=== PATIENT | female | born 1950 | race Caucasian/White ===

== ENCOUNTER 2023-01-14 14:03 | Inpatient (IN) | payer MEDICARE ==
--- NOTE | 2023-01-14 14:30 | ED ---
General Adult HPI - General Chief complaint: Shortness of Breath Stated complaint: SOB Time Seen by Provider: 01/14/23 14:08 Source: patient, RN notes reviewed Mode of arrival: EMS Limitations: no limitations - History of Present Illness Initial comments: Patient is a pleasant 72-year-old female presenting to the emergency Department short of breath. Admits to having a cough over the past week or 2. Patient states dyspnea just started today. Patient does have history of similar symptoms previously associated with COPD. Patient does admit to having some mild leg swelling. Patient is on Coumadin. No chest pain. Symptoms have significantly improved following nebulizer by EMS. - Related Data Home Medications Medication Instructions Recorded Confirmed ALPRAZolam [Xanax] 0.25 mg PO DAILY PRN 11/05/22 01/14/23 Acetaminophen [Tylenol] 650 mg PO Q6H PRN 11/05/22 01/14/23 Apple Cider Vinegar 500mg 500 mg PO DAILY 11/05/22 01/14/23 Aspirin EC [Ecotrin Low Dose] 81 mg PO DAILY 11/05/22 01/14/23 Atorvastatin Calcium [Lipitor] 80 mg PO HS 11/05/22 01/14/23 Bumetanide [BUMEX] 1 mg PO DAILY 11/05/22 01/14/23 Calcium Carbonate [Calcium] 1,200 mg PO DAILY 11/05/22 01/14/23 Cholecalciferol [Vitamin D3 (25 50 mcg PO DAILY 11/05/22 01/14/23 Mcg = 1000 Iu)] Levothyroxine Sodium [Synthroid] 175 mcg PO DAILY 11/05/22 01/14/23 Phenazopyridine HCl [Pyridium] 200 mg PO TID PRN 11/05/22 01/14/23 Potassium Chloride ER [K-Dur 10] 10 meq PO DAILY 11/05/22 01/14/23 Sertraline [Zoloft] 50 mg PO HS 11/05/22 01/14/23 Warfarin [Coumadin] 2.5 mg PO MOTUWEFRSA 11/05/22 01/14/23 Warfarin [Coumadin] 5 mg PO SUTH 11/05/22 01/14/23 buPROPion XL [Wellbutrin XL] 150 mg PO DAILY 11/05/22 01/14/23 polyethylene glycoL 3350 [Miralax] 17 gm PO DAILY 11/05/22 01/14/23 Ferrous Sulfate [Iron (65 MG 325 mg PO DAILY 01/14/23 01/14/23 Elemental)] Gabapentin [Neurontin] 300 mg PO BID 01/14/23 01/14/23 Metoprolol Succinate [Metoprolol 25 mg PO DAILY 01/14/23 01/14/23 Succinate ER] Previous Rx's Medication Instructions Recorded Cyanocobalamin [Vitamin B-12] 1,000 mcg PO DAILY #30 tab 11/12/22 Omeprazole 40 mg PO BID #60 cap 11/12/22 Promethazine [Phenergan] 12.5 mg PO Q6HR PRN #10 tab 11/29/22 metFORMIN HCL [Glucophage] 850 mg PO BID-W/MEALS 30 Days #60 11/29/22 tab Allergies Allergy/AdvReac Type Severity Reaction Status Date / Time No Known Allergies Allergy Verified 01/14/23 15:17 Review of Systems ROS Statement: Those systems with pertinent positive or pertinent negative responses have been documented in the HPI. ROS Other: All systems not noted in ROS Statement are negative. Constitutional: Denies: fever Eyes: Denies: eye pain ENT: Denies: ear pain Respiratory: Reports: as per HPI, cough, dyspnea Cardiovascular: Reports: edema. Denies: chest pain Endocrine: Reports: fatigue Gastrointestinal: Denies: abdominal pain Genitourinary: Denies: dysuria Musculoskeletal: Denies: back pain Skin: Denies: rash Neurological: Denies: weakness Past Medical History Past Medical History: Diabetes Mellitus, Hyperlipidemia, Hypertension, Pulmonary Embolus (PE) Additional Past Medical History / Comment(s): Neuropathy, DM type 2 History of Any Multi-Drug Resistant Organisms: None Reported Past Surgical History: Appendectomy, Bladder Surgery, Coronary Bypass/CABG, Hysterectomy, Joint Replacement Additional Past Surgical History / Comment(s): Lung surgery, bladder suspension x5, right knee replacement Past Anesthesia/Blood Transfusion Reactions: No Reported Reaction Past Psychological History: Anxiety Smoking Status: Never smoker Past Alcohol Use History: None Reported Past Drug Use History: None Reported - Past Family History Father Family Medical History: Hyperlipidemia, Hypertension, Myocardial Infarction ([place]) Additional Family Medical History / Comment(s): Passed from myocardial infarction in 1999. Mother Family Medical History: Coronary Artery Disease (CAD), Renal Disease Additional Family Medical History / Comment(s): "Surgery on carotids," was on peritoneal dialysis. General Exam Limitations: no limitations General appearance: alert, in no apparent distress Head exam: Present: normocephalic Eye exam: Present: normal appearance Neck exam: Present: normal inspection Respiratory exam: Present: wheezes (Mild expiratory) Cardiovascular Exam: Present: regular rate, normal rhythm GI/Abdominal exam: Present: soft. Absent: tenderness Extremities exam: Present: pedal edema (+1 bilateral). Absent: calf tenderness Neurological exam: Present: alert Psychiatric exam: Present: normal affect, normal mood Skin exam: Present: normal color Course Vital Signs 01/14/23 01/14/23 01/14/23 14:06 14:08 14:42 Temperature 98 F Pulse Rate 92 88 Respiratory 24 18 20 Rate Blood Pressure 130/52 105/44 O2 Sat by Pulse 97 96 Oximetry 01/14/23 16:03 Temperature Pulse Rate 68 Respiratory 16 Rate Blood Pressure 110/60 O2 Sat by Pulse 98 Oximetry EKG Findings - EKG Results: EKG: interpreted by ERMD (Right axis. Right branch block. ST depression V2 through V5.), sinus rhythm Medical Decision Making - Medical Decision Making Was pt. sent in by a medical professional or institution (, PA, HARDWARE DESIGNER, urgent care, hospital, or skilled nursing...) When possible be specific @ -No Did you speak to anyone other than the patient for history (EMS, parent, family, police, friend...)? What history was obtained from this source @ -No Did you review nursing and triage notes (agree or disagree)? Why? @ -I reviewed and agree with nursing and triage notes Were old charts reviewed (outside hosp., previous admission, EMS record, old EKG, old radiological studies, urgent care reports/EKG's, skilled nursing records)? Report findings @ -Previous admission reviewed Differential Diagnosis (chest pain, altered mental status, abdominal pain women, abdominal pain men, vaginal bleeding, weakness, fever, dyspnea, syncope, headache, dizziness, GI bleed, back pain, seizure, CVA, palpatations, mental health)? @ -Differential Dyspnea: Coronary syndrome, arrhythmia, tamponade, asthma, COPD, pulmonary embolism, pneumonia, pneumothorax, pulmonary effusion, anaphylaxis, diabetic ketoacidosis, flailed chest, pulmonary contusion, diaphragmatic rupture, anemia, neuromuscular, this is not meant to be an all-inclusive list. EKG interpreted by me (3pts min.). @ -As above X-rays interpreted by me (1pt min.). @ -Chest x-ray without acute abnormality CT interpreted by me (1pt min.). @ -None done U/S interpreted by me (1pt. min.). @ -None done What testing was considered but not performed or refused? (CT, X-rays, U/S, labs)? Why? @ -None What meds were considered but not given or refused? Why? @ -None Did you discuss the management of the patient with other professionals (professionals i.e. Dr., PA, HARDWARE DESIGNER, lab, RT, psych nurse, social and human services assistant, associate, teacher, business banking officer, child support case officer)? Give summary @ -Case discussed with practitioner Kelsey Jones will admit covering for Dr. Johnson, who admits for Dr. Boyle. Patient will be evaluated by cardiology to review EKG and will have repeat cardiac testing. Was smoking cessation discussed for >3mins.? @ -No Was critical care preformed (if so, how long)? @ -No Were there social determinants of health that impacted care today? How? (Homelessness, low income, unemployed, alcoholism, drug addiction, transportation, low edu. Level, literacy, decrease access to med. care, [facility], rehab)? @ -No Was there de-escalation of care discussed even if they declined (Discuss DNR or withdrawal of care, Hospice)? DNR status @ -No What co-morbidities impacted this encounter? (DM, HTN, Smoking, COPD, CAD, Cancer, CVA, ARF, Chemo, Hep., AIDS, mental health diagnosis, sleep apnea, morbid obesity)? @ -None Was patient admitted / discharged? Hospital course, mention meds given and route, prescriptions, significant lab abnormalities, going to OR and other pertinent info. @ -Patient reevaluated and feels much better following nebulizer. Patient will be held for cardiac evaluation Undiagnosed new problem with uncertain prognosis? @ -No Drug Therapy requiring intensive monitoring for toxicity (Heparin, Nitro, Insulin, Cardizem)? @ -No Were any procedures done? @ -No Diagnosis/symptom? @ -COPD Acute, or Chronic, or Acute on Chronic? @ -Acute on chronic Uncomplicated (without systemic symptoms) or Complicated (systemic symptoms)? @ -default Side effects of treatment? @ -No Exacerbation, Progression, or Severe Exacerbation? @ -No Poses a threat to life or bodily function? How? (Chest pain, USA, CT, pneumonia, PE, COPD, DKA, ARF, appy, cholecystitis, CVA, Diverticulitis, Homicidal, Suicidal, threat to staff... and all critical care pts) @ -No - Lab Data Result diagrams: 01/14/23 14:27 01/14/23 14:27 Lab Results 01/14/23 01/14/23 01/14/23 Range/Units 14:27 14:27 14:27 WBC 6.3 (3.8-10.6) k/uL RBC 3.73 L (3.80-5.40) m/uL Hgb 9.3 L (11.4-16.0) gm/dL Hct 30.4 L (34.0-46.0) % MCV 81.4 D (80.0-100.0) fL MCH 25.0 (25.0-35.0) pg MCHC 30.7 L (31.0-37.0) g/dL RDW 16.5 H (11.5-15.5) % Plt Count 270 (150-450) k/uL MPV 8.2 Neutrophils % 79 % Lymphocytes % 12 % Monocytes % 4 % Eosinophils % 3 % Basophils % 0 % Neutrophils # 5.0 (1.3-7.7) k/uL Lymphocytes # 0.7 L (1.0-4.8) k/uL Monocytes # 0.3 (0-1.0) k/uL Eosinophils # 0.2 (0-0.7) k/uL Basophils # 0.0 (0-0.2) k/uL Hypochromasia Marked Poikilocytosis Slight Anisocytosis Slight PT 18.8 H (9.0-12.0) sec INR 1.9 H (<1.2) APTT 25.4 (22.0-30.0) sec Sodium 139 (137-145) mmol/L Potassium 4.2 (3.5-5.1) mmol/L Chloride 106 (98-107) mmol/L Carbon Dioxide 26 (22-30) mmol/L Anion Gap 7 mmol/L BUN 15 (7-17) mg/dL Creatinine 0.61 (0.52-1.04) mg/dL Est GFR (CKD-EPI)AfAm >90 (>60 ml/min/1.73 sqM) Est GFR (CKD-EPI)NonAf >90 (>60 ml/min/1.73 sqM) Glucose 119 H (74-99) mg/dL Plasma Lactic Acid Wayne (0.7-2.0) mmol/L Calcium 8.8 (8.4-10.2) mg/dL Magnesium 1.4 L (1.6-2.3) mg/dL Total Bilirubin 0.3 (0.2-1.3) mg/dL AST 20 (14-36) U/L ALT 15 (4-34) U/L Alkaline Phosphatase 72 (38-126) U/L Troponin I (0.000-0.034) ng/mL NT-Pro-B Natriuret Pep pg/mL Total Protein 5.4 L (6.3-8.2) g/dL Albumin 3.2 L (3.5-5.0) g/dL Influenza Type A (PCR) (Not Detectd) Influenza Type B (PCR) (Not Detectd) RSV (PCR) (Not Detectd) SARS-CoV-2 (PCR) (Not Detectd) 01/14/23 01/14/23 01/14/23 Range/Units 14:27 14:27 14:27 WBC (3.8-10.6) k/uL RBC (3.80-5.40) m/uL Hgb (11.4-16.0) gm/dL Hct (34.0-46.0) % MCV (80.0-100.0) fL MCH (25.0-35.0) pg MCHC (31.0-37.0) g/dL RDW (11.5-15.5) % Plt Count (150-450) k/uL MPV Neutrophils % % Lymphocytes % % Monocytes % % Eosinophils % % Basophils % % Neutrophils # (1.3-7.7) k/uL Lymphocytes # (1.0-4.8) k/uL Monocytes # (0-1.0) k/uL Eosinophils # (0-0.7) k/uL Basophils # (0-0.2) k/uL Hypochromasia Poikilocytosis Anisocytosis PT (9.0-12.0) sec INR (<1.2) APTT (22.0-30.0) sec Sodium (137-145) mmol/L Potassium (3.5-5.1) mmol/L Chloride (98-107) mmol/L Carbon Dioxide (22-30) mmol/L Anion Gap mmol/L BUN (7-17) mg/dL Creatinine (0.52-1.04) mg/dL Est GFR (CKD-EPI)AfAm (>60 ml/min/1.73 sqM) Est GFR (CKD-EPI)NonAf (>60 ml/min/1.73 sqM) Glucose (74-99) mg/dL Plasma Lactic Acid Wayne 2.5 H* (0.7-2.0) mmol/L Calcium (8.4-10.2) mg/dL Magnesium (1.6-2.3) mg/dL Total Bilirubin (0.2-1.3) mg/dL AST (14-36) U/L ALT (4-34) U/L Alkaline Phosphatase (38-126) U/L Troponin I <0.012 (0.000-0.034) ng/mL NT-Pro-B Natriuret Pep 2900 pg/mL Total Protein (6.3-8.2) g/dL Albumin (3.5-5.0) g/dL Influenza Type A (PCR) (Not Detectd) Influenza Type B (PCR) (Not Detectd) RSV (PCR) (Not Detectd) SARS-CoV-2 (PCR) (Not Detectd) 01/14/23 Range/Units 14:27 WBC (3.8-10.6) k/uL RBC (3.80-5.40) m/uL Hgb (11.4-16.0) gm/dL Hct (34.0-46.0) % MCV (80.0-100.0) fL MCH (25.0-35.0) pg MCHC (31.0-37.0) g/dL RDW (11.5-15.5) % Plt Count (150-450) k/uL MPV Neutrophils % % Lymphocytes % % Monocytes % % Eosinophils % % Basophils % % Neutrophils # (1.3-7.7) k/uL Lymphocytes # (1.0-4.8) k/uL Monocytes # (0-1.0) k/uL Eosinophils # (0-0.7) k/uL Basophils # (0-0.2) k/uL Hypochromasia Poikilocytosis Anisocytosis PT (9.0-12.0) sec INR (<1.2) APTT (22.0-30.0) sec Sodium (137-145) mmol/L Potassium (3.5-5.1) mmol/L Chloride (98-107) mmol/L Carbon Dioxide (22-30) mmol/L Anion Gap mmol/L BUN (7-17) mg/dL Creatinine (0.52-1.04) mg/dL Est GFR (CKD-EPI)AfAm (>60 ml/min/1.73 sqM) Est GFR (CKD-EPI)NonAf (>60 ml/min/1.73 sqM) Glucose (74-99) mg/dL Plasma Lactic Acid Wayne (0.7-2.0) mmol/L Calcium (8.4-10.2) mg/dL Magnesium (1.6-2.3) mg/dL Total Bilirubin (0.2-1.3) mg/dL AST (14-36) U/L ALT (4-34) U/L Alkaline Phosphatase (38-126) U/L Troponin I (0.000-0.034) ng/mL NT-Pro-B Natriuret Pep pg/mL Total Protein (6.3-8.2) g/dL Albumin (3.5-5.0) g/dL Influenza Type A (PCR) Not Detected (Not Detectd) Influenza Type B (PCR) Not Detected (Not Detectd) RSV (PCR) Not Detected (Not Detectd) SARS-CoV-2 (PCR) Not Detected (Not Detectd) Disposition Clinical Impression: Acute exacerbation of chronic obstructive pulmonary disease Disposition: ADMITTED IP TO THIS HOSP Is patient prescribed a controlled substance at d/c from ED?: No Referrals: Marissa Boyle DO [Primary Care Provider] - 1-2 days Time of Disposition: 17:51
--- NOTE | 2023-01-14 15:15 | XR ---
EXAMINATION TYPE: XR chest 2V DATE OF EXAM: 01/14/2023 3:04 PM COMPARISON: Chest radiographs from 11/27/2022 TECHNIQUE: XR chest 2V Frontal and lateral views of the chest. CLINICAL INDICATION:Female, 72 years old with history of difficulty breathing; FINDINGS: Lungs/Pleura: There is no evidence of pleural effusion, focal consolidation, or pneumothorax. Pulmonary vascularity: Unremarkable. Heart/mediastinum: Cardiomediastinal silhouette is unremarkable. Musculoskeletal: No acute osseous pathology. IMPRESSION: No acute cardiopulmonary disease/process.
[2023-01-14 15:16] LABS: Anisocytosis Slight; Basophils % (A) 0 %; Eosinophils # (A) 0.2 k/uL (0-0.7); Eosinophils % (A) 3 %; HCT 30.4 % (34.0-46.0); HGB 9.3 gm/dL (11.4-16.0); Hypochromasia Marked; Lymphocytes # (A) 0.7 k/uL (1.0-4.8); Lymphocytes % (A) 12 %; MCHC 30.7 g/dL (31.0-37.0); Mean Platelet Volume 8.2; Monocytes # (A) 0.3 k/uL (0-1.0); Monocytes % (A) 4 %; Neutrophils % (A) 79 %; Platelet Count 270 k/uL (150-450); Poikilocytosis Slight; RBC 3.73 m/uL (3.80-5.40); RDW 16.5 % (11.5-15.5); WBC 6.3 k/uL (3.8-10.6)
[2023-01-14 15:27] LABS: MCV 81.4 fL (80.0-100.0)
[2023-01-14 15:37] LABS: INR 1.9 (<1.2); Partial Thromboplastin Time 25.4 sec (22.0-30.0); Prothrombin Time 18.8 sec (9.0-12.0)
[2023-01-14 16:50] LABS: ALT 15 U/L (4-34); AST 20 U/L (14-36); African American GFR (CKD) >90 (>60 ml/min/1.73 sqM); Albumin 3.2 g/dL (3.5-5.0); Alkaline Phosphatase 72 U/L (38-126); Anion Gap 7 mmol/L; Blood Urea Nitrogen 15 mg/dL (7-17); Calcium 8.8 mg/dL (8.4-10.2); Carbon Dioxide 26 mmol/L (22-30); Chloride 106 mmol/L (98-107); Glucose 119 mg/dL (74-99); Magnesium 1.4 mg/dL (1.6-2.3); Non-African American GFR(CKD) >90 (>60 ml/min/1.73 sqM); Potassium 4.2 mmol/L (3.5-5.1); Sodium 139 mmol/L (137-145); Total Bilirubin 0.3 mg/dL (0.2-1.3); Total Protein 5.4 g/dL (6.3-8.2)
[2023-01-14] MEDS ORDERED: ASPIRIN 81 MG PO STA (17:52)
[2023-01-14] MEDS ORDERED: NALOXONE 0.4 MG/ML 1 ML VIAL IVP PRN (17:52)
[2023-01-14] MEDS ORDERED: IPRATROPIUM-ALBUTEROL 3 ML NEB INHALATION PRN (17:52)
[2023-01-14] MEDS ORDERED: NITROGLYCERIN SL TABS 0.4 MG TAB SUBLINGUAL PRN (17:52)
[2023-01-14] MEDS: methylPREDNISolone SOD SUCCI 125 MG/2 ML VIAL IV SCH (18:13)
[2023-01-14] MEDS: IPRATROPIUM-ALBUTEROL 3 ML NEB INHALATION SCH (19:23)
[2023-01-14] MEDS ORDERED: DEXTROSE 50% SYRINGE 50 ML IVP PRN ×2 (19:30)
[2023-01-14] MEDS: PANTOPRAZOLE 40 MG TABLET PO SCH (20:55)
[2023-01-14] MEDS: ATORVASTATIN 80 MG TAB PO SCH (20:55)
[2023-01-14] MEDS: SERTRALINE 50 MG TAB PO SCH (20:55)
[2023-01-14] MEDS: INSULIN ASPART (NovoLOG) 100 UNIT/ML VIAL SQ SCH (20:55)
[2023-01-14] MEDS: GABAPENTIN 300 MG CAP PO SCH (20:55)
[2023-01-14 21:05] LABS: Glucose,Whole Blood 102 mg/dL (70-110)
[2023-01-15] MEDS: methylPREDNISolone SOD SUCCI 125 MG/2 ML VIAL IV SCH ×5 (00:04→23:09)
--- NOTE | 2023-01-15 02:18 | P.HPIM ---
History of Present Illness H&P Date: 01/14/23 Chief Complaint: Shortness of breath Patient is a 70-year-old female with a known history of coronary artery bypass graft, COPD on oxygen at 3 L via nasal cannula, history of multiple PEs status post thrombectomy at [facility] on long-term anticoagulation with Coumad in, diabetes type 2, hypertension, hyperlipidemia, diabetic neuropathy, Patient was recently discharged from the hospital 11/29/2022. Patient presents to ER with complaints of shortness of breath started today afternoon. Denies any complaints of chest pain. No headache or dizziness or lightheadedness. No nausea vomiting or abdominal pain or diarrhea. Patient does have mild leg swelling as well. Denies any worsening swelling recently.. Denied any pleuritic chest pain. Chest x-ray showed no acute cardiopulmonary process/disease EKG showed sinus rhythm with right bundle branch block with ST depression in the leads V2 to V4. Laboratory data showed WBC 6.3 hemoglobin 9.3 and platelets 270 INR 1.9 Lactic acid 2.5 on admission proBNP 2900 and albumin 3.2 and troponin x2 negative Influenza A B, COVID-19 and RSV not detected. Patient states that she is holding Coumadin for the past 3 days due to scheduled EGD. Review of Systems PHYSICAL EXAMINATION: Patient is lying in the bed comfortably, no acute distress, awake alert and oriented.. HEENT: Normocephalic. Neck is supple. Pupils reactive. Nostrils clear. Oral cavity is moist. Neck reveals no JVD, carotid bruits, or thyromegaly. CHEST EXAMINATION: Trachea is central. Symmetrical expansion. Bibasilar diminished sounds and diffuse wheezing. No rhonchi or crackles.. CARDIAC: Normal S1, S2 with no gallops. No murmurs ABDOMEN: Soft. Bowel sounds present. Nontender. No organomegaly. No abdominal bruits. Extremities: Trace bilateral pedal edema. No clubbing or cyanosis Neurologically awake, alert, oriented x3 with well-coordinated movements. No focal deficits noted Skin: No rash or skin lesions. Psychiatric: Coperative. Nonsuicidal, Musculoskeletal: No joint swelling or deformity. Normal range of motion. Past Medical History Past Medical History: Diabetes Mellitus, Hyperlipidemia, Hypertension, Pulmonary Embolus (PE) Additional Past Medical History / Comment(s): Neuropathy, DM type 2 History of Any Multi-Drug Resistant Organisms: None Reported Past Surgical History: Appendectomy, Bladder Surgery, Coronary Bypass/CABG, Hysterectomy, Joint Replacement Additional Past Surgical History / Comment(s): Lung surgery, bladder suspension x5, right knee replacement Past Anesthesia/Blood Transfusion Reactions: No Reported Reaction Past Psychological History: Anxiety Smoking Status: Never smoker Past Alcohol Use History: None Reported Past Drug Use History: None Reported - Past Family History Father Family Medical History: Hyperlipidemia, Hypertension, Myocardial Infarction ([place]) Additional Family Medical History / Comment(s): Passed from myocardial infarction in 1999. Mother Family Medical History: Coronary Artery Disease (CAD), Renal Disease Additional Family Medical History / Comment(s): "Surgery on carotids," was on peritoneal dialysis. Medications and Allergies Home Medications Medication Instructions Recorded Confirmed Type ALPRAZolam [Xanax] 0.25 mg PO DAILY PRN 11/05/22 01/14/23 History Acetaminophen [Tylenol] 650 mg PO Q6H PRN 11/05/22 01/14/23 History Apple Cider Vinegar 500mg 500 mg PO DAILY 11/05/22 01/14/23 History Aspirin EC [Ecotrin Low Dose] 81 mg PO DAILY 11/05/22 01/14/23 History Atorvastatin Calcium [Lipitor] 80 mg PO HS 11/05/22 01/14/23 History Bumetanide [BUMEX] 1 mg PO DAILY 11/05/22 01/14/23 History Calcium Carbonate [Calcium] 1,200 mg PO DAILY 11/05/22 01/14/23 History Cholecalciferol [Vitamin D3 (25 50 mcg PO DAILY 11/05/22 01/14/23 History Mcg = 1000 Iu)] Levothyroxine Sodium [Synthroid] 175 mcg PO DAILY 11/05/22 01/14/23 History Phenazopyridine HCl [Pyridium] 200 mg PO TID PRN 11/05/22 01/14/23 History Potassium Chloride ER [K-Dur 10] 10 meq PO DAILY 11/05/22 01/14/23 History Sertraline [Zoloft] 50 mg PO HS 11/05/22 01/14/23 History Warfarin [Coumadin] 2.5 mg PO MOTUWEFRSA 11/05/22 01/14/23 History Warfarin [Coumadin] 5 mg PO SUTH 11/05/22 01/14/23 History buPROPion XL [Wellbutrin XL] 150 mg PO DAILY 11/05/22 01/14/23 History polyethylene glycoL 3350 [Miralax] 17 gm PO DAILY 11/05/22 01/14/23 History Cyanocobalamin [Vitamin B-12] 1,000 mcg PO DAILY #30 tab 11/12/22 01/14/23 Rx Omeprazole 40 mg PO BID #60 cap 11/12/22 01/14/23 Rx Promethazine [Phenergan] 12.5 mg PO Q6HR PRN #10 tab 11/29/22 01/14/23 Rx metFORMIN HCL [Glucophage] 850 mg PO BID-W/MEALS 30 Days #60 11/29/22 01/14/23 Rx tab Ferrous Sulfate [Iron (65 MG 325 mg PO DAILY 01/14/23 01/14/23 History Elemental)] Gabapentin [Neurontin] 300 mg PO BID 01/14/23 01/14/23 History Metoprolol Succinate [Metoprolol 25 mg PO DAILY 01/14/23 01/14/23 History Succinate ER] Allergies Allergy/AdvReac Type Severity Reaction Status Date / Time No Known Allergies Allergy Verified 01/14/23 15:17 Physical Exam Vitals: Vital Signs Temp Pulse Resp BP Pulse Ox 01/14/23 18:15 87 16 112/57 99 01/14/23 16:03 68 16 110/60 98 01/14/23 14:42 20 01/14/23 14:08 88 18 105/44 96 01/14/23 14:06 98 F 92 24 130/52 97 Intake and Output 01/14/23 01/14/23 01/14/23 06:59 14:59 22:59 Other: Weight 79.379 kg PHYSICAL EXAMINATION: Patient is lying in the bed comfortably, no acute distress, awake alert and oriented.. HEENT: Normocephalic. Neck is supple. Pupils reactive. Nostrils clear. Oral cavity is moist. Neck reveals no JVD, carotid bruits, or thyromegaly. CHEST EXAMINATION: Trachea is central. Symmetrical expansion. Bibasilar diminished sounds and diffuse wheezing. No rhonchi or crackles.. CARDIAC: Normal S1, S2 with no gallops. No murmurs ABDOMEN: Soft. Bowel sounds present. Nontender. No organomegaly. No abdominal bruits. Extremities: Trace bilateral pedal edema. No clubbing or cyanosis Neurologically awake, alert, oriented x3 with well-coordinated movements. No focal deficits noted Skin: No rash or skin lesions. Psychiatric: Coperative. Nonsuicidal, Musculoskeletal: No joint swelling or deformity. Normal range of motion. Results CBC & Chem 7: 01/15/23 12:44 01/15/23 09:48 Labs: Abnormal Lab Results - Last 24 Hours (Table) 01/14/23 01/14/23 01/14/23 Range/Units 14:27 14:27 14:27 RBC 3.73 L (3.80-5.40) m/uL Hgb 9.3 L (11.4-16.0) gm/dL Hct 30.4 L (34.0-46.0) % MCHC 30.7 L (31.0-37.0) g/dL RDW 16.5 H (11.5-15.5) % Lymphocytes # 0.7 L (1.0-4.8) k/uL PT 18.8 H (9.0-12.0) sec INR 1.9 H (<1.2) Glucose 119 H (74-99) mg/dL Plasma Lactic Acid Wayne (0.7-2.0) mmol/L Magnesium 1.4 L (1.6-2.3) mg/dL Total Protein 5.4 L (6.3-8.2) g/dL Albumin 3.2 L (3.5-5.0) g/dL 01/14/23 Range/Units 14:27 RBC (3.80-5.40) m/uL Hgb (11.4-16.0) gm/dL Hct (34.0-46.0) % MCHC (31.0-37.0) g/dL RDW (11.5-15.5) % Lymphocytes # (1.0-4.8) k/uL PT (9.0-12.0) sec INR (<1.2) Glucose (74-99) mg/dL Plasma Lactic Acid Wayne 2.5 H* (0.7-2.0) mmol/L Magnesium (1.6-2.3) mg/dL Total Protein (6.3-8.2) g/dL Albumin (3.5-5.0) g/dL Thrombosis Risk Factor Assmnt - DVT/VTE Prophylaxis DVT/VTE Prophylaxis: Pharmacologic Prophylaxis ordered Assessment and Plan Assessment: Worsening shortness of breath secondary to acute COPD exacerbation Chronic hypoxic respiratory failure on oxygen at 3 L via nasal cannula History of PE status post thrombectomy at [facility]. on indefinite anticoagulation with Coumadin. Coronary artery disease history of CABG Diabetes type 2 [id number] Anxiety/depression Hypertension Hyperlipidemia Diabetic neuropathy Hypothyroidism Coumadin dosing and monitoring INR. Plan: Patient will be continued on IV Solu-Medrol 60 mg every 6 hourly and continue with DuoNebs. Oxygen supplementation. Coumadin dosing and home medications. Cardiology was consulted due to EKG changes. Continue to follow closely. Discussed with the patient and her at bedside in detail. Time with Patient: Greater than 30
[2023-01-15] MEDS: LEVOTHYROXINE 88 MCG TAB PO SCH (05:23)
[2023-01-15 06:15] LABS: Glucose,Whole Blood 223 mg/dL (70-110)
[2023-01-15] MEDS: INSULIN ASPART (NovoLOG) 100 UNIT/ML VIAL SQ SCH ×4 (06:18→21:11)
[2023-01-15] MEDS: IPRATROPIUM-ALBUTEROL 3 ML NEB INHALATION SCH ×4 (07:39→19:54)
[2023-01-15] MEDS: ACETAMINOPHEN TAB 325 MG TAB PO PRN (08:35)
[2023-01-15] MEDS: METOPROLOL SUCCINATE (ER) 25 MG TAB.ER.24H PO SCH (08:47)
[2023-01-15] MEDS: BUMETANIDE 1 MG TAB PO SCH (08:47)
[2023-01-15] MEDS: GABAPENTIN 300 MG CAP PO SCH ×2 (08:47→21:01)
[2023-01-15] MEDS: POTASSIUM CHLORIDE ER 10 MEQ TAB.ER.PRT PO SCH (08:47)
[2023-01-15] MEDS: buPROPion XL 150 MG TAB.ER.24H PO SCH (08:47)
[2023-01-15] MEDS: ASPIRIN 81 MG PO SCH (08:47)
[2023-01-15] MEDS: PANTOPRAZOLE 40 MG TABLET PO SCH ×2 (08:47→21:01)
[2023-01-15] MEDS ORDERED: ASPIRIN 325 MG TAB PO SCH (09:00)
[2023-01-15 10:10] LABS: Anisocytosis Slight; Basophils % (A) 0 %; Eosinophils % (A) 0 %; HCT 33.2 % (34.0-46.0); HGB 9.8 gm/dL (11.4-16.0); Hypochromasia Marked; Lymphocytes # (A) 0.3 k/uL (1.0-4.8); Lymphocytes % (A) 6 %; MCH 24.7 pg (25.0-35.0); MCHC 29.5 g/dL (31.0-37.0); MCV 83.4 fL (80.0-100.0); Mean Platelet Volume 8.3; Monocytes # (A) 0.1 k/uL (0-1.0); Monocytes % (A) 1 %; Neutrophils # (A) 4.2 k/uL (1.3-7.7); Neutrophils % (A) 92 %; Platelet Count 281 k/uL (150-450); Poikilocytosis Slight; RBC 3.97 m/uL (3.80-5.40); RDW 16.5 % (11.5-15.5); WBC 4.5 k/uL (3.8-10.6)
[2023-01-15 10:32] LABS: African American GFR (CKD) >90 (>60 ml/min/1.73 sqM); Anion Gap 9 mmol/L; Blood Urea Nitrogen 20 mg/dL (7-17); Calcium 8.7 mg/dL (8.4-10.2); Carbon Dioxide 23 mmol/L (22-30); Chloride 105 mmol/L (98-107); Glucose 206 mg/dL (74-99); Non-African American GFR(CKD) 89 (>60 ml/min/1.73 sqM); Potassium 4.2 mmol/L (3.5-5.1); Sodium 137 mmol/L (137-145)
--- NOTE | 2023-01-15 10:44 | P.CRDCN ---
History of Present Illness Consult date: 01/15/23 History of present illness: HISTORY OF PRESENT ILLNESS: This is a 72-year-old female with a past medical history significant for lupus, pulmonary embolism status post PTE in June 2021, coronary artery disease with previous one-vessel CABG in 2000 (performed in [place]), COPD, diabetes, hypothyroidism, and hyperlipidemia. Patient does not follow with a per diem physical therapist assistant. We have been asked to see the patient in consultation for abnormal EKG. Patient examined at the bedside. Patient presented to the hospital with a chief complaint of weakness and shortness of breath. Patient's being treated for COPD exacerbation. Patient denies any chest pain or pressure. She is receiving IV steroids. * EKG reveals sinus mechanism with right bundle branch block. Patient with T- wave inversions, also evident on previous EKGs * Chest xray negative for acute process * Laboratory data: WBC 4.5. Hemoglobin 9.8. Platelet count 281. Sodium 137. Potassium 4.2. BUN 20. Creatinine 0.66. Troponin negative 3. INR 1.9 * Current home cardiac medications include warfarin 5 mg Friday and 2.5 mg Friday, aspirin 81 mg daily, Bumex 1 mg daily, Lipitor 80 mg at night * Most recent echocardiogram obtained in November 2022 revealed ejection fraction 55-60%, mild to moderate right ventricular dilation with mild right ventricular hypokinesis. Mild tricuspid regurgitation. * Patient underwent Lexiscan stress test in November 2022 which was negative for ischemia REVIEW OF SYSTEMS: At the time of my exam: CONSTITUTIONAL: Denies fever or chills. HEENT: Denies blurred vision, vision changes, or eye pain. Denies hemoptysis CARDIOVASCULAR: Denies chest pain. Denies orthopnea. Denies PND. Denies palpitations RESPIRATORY: Denies shortness of breath. GASTROINTESTINAL: Denies abdominal pain. Denies nausea or vomiting. HEMATOLOGIC: Denies bleeding disorders. GENITOURINARY: Denies any blood in urine. SKIN: Denies pruitis. Denies rash. PHYSICAL EXAM: VITAL SIGNS: Reviewed. GENERAL: Well-developed in no acute distress. HEENT: Head is normocephalic. Pupils are equal, round. Sclerae anicteric. Mucous membranes of the mouth are moist. Neck supple. No JVD or thyromegaly LUNGS: Respirations even and unlabored. Lungs essentially clear to auscultation bilaterally. HEART: Regular rate and rhythm. S1 and S2 heard. ABDOMEN: Soft. Nondistended. Nontender. EXTREMITIES: Normal range of motion. No clubbing or cyanosis. Peripheral pulses intact. No lower extremity edema NEUROLOGIC: Awake and alert. Oriented x 3. ASSESSMENT: Shortness of breath COPD exacerbation History of pulmonary embolism, on warfarin Subtherapeutic INR Coronary artery disease with previous one-vessel CABG, performed in [place] in 2000 History of lupus Hyperlipidemia Hypothyroidism Diabetes PLAN: Obtain d-dimer secondary to subtherapeutic INR and history of PE Obtain limited echo Continue current cardiac medications Treatment of COPD exacerbation per internal medicine Further recommendations pending patient's course Nurse practitioner note has been reviewed by physician. Signing provider agrees with the documented findings, assessment, and plan of care. Past Medical History Past Medical History: Diabetes Mellitus, Hyperlipidemia, Hypertension, Pulmonary Embolus (PE) Additional Past Medical History / Comment(s): Neuropathy, DM type 2 History of Any Multi-Drug Resistant Organisms: None Reported Past Surgical History: Appendectomy, Bladder Surgery, Coronary Bypass/CABG, Hysterectomy, Joint Replacement Additional Past Surgical History / Comment(s): Lung surgery, bladder suspension x5, right knee replacement Past Anesthesia/Blood Transfusion Reactions: No Reported Reaction Past Psychological History: Anxiety Smoking Status: Never smoker Past Alcohol Use History: None Reported Past Drug Use History: None Reported - Past Family History Father Family Medical History: Hyperlipidemia, Hypertension, Myocardial Infarction ([place]) Additional Family Medical History / Comment(s): Passed from myocardial infarction in 1999. Mother Family Medical History: Coronary Artery Disease (CAD), Renal Disease Additional Family Medical History / Comment(s): "Surgery on carotids," was on peritoneal dialysis. Medications and Allergies Home Medications Medication Instructions Recorded Confirmed Type ALPRAZolam [Xanax] 0.25 mg PO DAILY PRN 11/05/22 01/14/23 History Acetaminophen [Tylenol] 650 mg PO Q6H PRN 11/05/22 01/14/23 History Apple Cider Vinegar 500mg 500 mg PO DAILY 11/05/22 01/14/23 History Aspirin EC [Ecotrin Low Dose] 81 mg PO DAILY 11/05/22 01/14/23 History Atorvastatin Calcium [Lipitor] 80 mg PO HS 11/05/22 01/14/23 History Bumetanide [BUMEX] 1 mg PO DAILY 11/05/22 01/14/23 History Calcium Carbonate [Calcium] 1,200 mg PO DAILY 11/05/22 01/14/23 History Cholecalciferol [Vitamin D3 (25 50 mcg PO DAILY 11/05/22 01/14/23 History Mcg = 1000 Iu)] Levothyroxine Sodium [Synthroid] 175 mcg PO DAILY 11/05/22 01/14/23 History Phenazopyridine HCl [Pyridium] 200 mg PO TID PRN 11/05/22 01/14/23 History Potassium Chloride ER [K-Dur 10] 10 meq PO DAILY 11/05/22 01/14/23 History Sertraline [Zoloft] 50 mg PO HS 11/05/22 01/14/23 History Warfarin [Coumadin] 2.5 mg PO MOTUWEFRSA 11/05/22 01/14/23 History Warfarin [Coumadin] 5 mg PO SUTH 11/05/22 01/14/23 History buPROPion XL [Wellbutrin XL] 150 mg PO DAILY 11/05/22 01/14/23 History polyethylene glycoL 3350 [Miralax] 17 gm PO DAILY 11/05/22 01/14/23 History Cyanocobalamin [Vitamin B-12] 1,000 mcg PO DAILY #30 tab 11/12/22 01/14/23 Rx Omeprazole 40 mg PO BID #60 cap 11/12/22 01/14/23 Rx Promethazine [Phenergan] 12.5 mg PO Q6HR PRN #10 tab 11/29/22 01/14/23 Rx metFORMIN HCL [Glucophage] 850 mg PO BID-W/MEALS 30 Days #60 11/29/22 01/14/23 Rx tab Ferrous Sulfate [Iron (65 MG 325 mg PO DAILY 01/14/23 01/14/23 History Elemental)] Gabapentin [Neurontin] 300 mg PO BID 01/14/23 01/14/23 History Metoprolol Succinate [Metoprolol 25 mg PO DAILY 01/14/23 01/14/23 History Succinate ER] Allergies Allergy/AdvReac Type Severity Reaction Status Date / Time No Known Allergies Allergy Verified 01/14/23 15:17 Physical Exam Vitals: Vital Signs Temp Pulse Pulse Resp BP BP Pulse Ox 01/15/23 07:54 78 01/15/23 07:39 76 97 01/15/23 06:26 98.3 F 87 17 119/78 97 01/15/23 02:00 98.1 F 98 14 109/58 96 01/14/23 21:22 68 16 130/60 98 01/14/23 20:57 92 20 106/55 96 01/14/23 20:25 80 01/14/23 19:47 86 16 110/60 98 01/14/23 19:23 82 01/14/23 18:15 87 16 112/57 99 01/14/23 16:03 68 16 110/60 98 01/14/23 14:42 20 01/14/23 14:08 88 18 105/44 96 01/14/23 14:06 98 F 92 24 130/52 97 Intake and Output 01/14/23 01/15/23 01/15/23 22:59 06:59 14:59 Other: Voiding Method Toilet # Voids 1 Weight 79.379 kg Results 01/15/23 09:48 01/15/23 09:48 Cardiac Enzymes 01/14/23 01/14/23 01/14/23 Range/Units 14:27 14:27 18:46 AST 20 (14-36) U/L Troponin I <0.012 <0.012 (0.000-0.034) ng/mL 01/14/23 Range/Units 20:57 AST (14-36) U/L Troponin I <0.012 (0.000-0.034) ng/mL Coagulation 01/14/23 Range/Units 14:27 PT 18.8 H (9.0-12.0) sec APTT 25.4 (22.0-30.0) sec CBC 01/14/23 01/15/23 Range/Units 14:27 09:48 WBC 6.3 4.5 (3.8-10.6) k/uL RBC 3.73 L 3.97 (3.80-5.40) m/uL Hgb 9.3 L 9.8 L (11.4-16.0) gm/dL Hct 30.4 L 33.2 L (34.0-46.0) % Plt Count 270 281 (150-450) k/uL Comprehensive Metabolic Panel 01/14/23 01/15/23 Range/Units 14:27 09:48 Sodium 139 137 (137-145) mmol/L Potassium 4.2 4.2 (3.5-5.1) mmol/L Chloride 106 105 (98-107) mmol/L Carbon Dioxide 26 23 (22-30) mmol/L BUN 15 20 H (7-17) mg/dL Creatinine 0.61 0.66 (0.52-1.04) mg/dL Glucose 119 H 206 H (74-99) mg/dL Calcium 8.8 8.7 (8.4-10.2) mg/dL AST 20 (14-36) U/L ALT 15 (4-34) U/L Alkaline Phosphatase 72 (38-126) U/L Total Protein 5.4 L (6.3-8.2) g/dL Albumin 3.2 L (3.5-5.0) g/dL Current Medications Generic Name Dose Route Start Last Admin Trade Name Freq PRN Reason Stop Dose Admin Acetaminophen 650 mg 01/14/23 17:52 01/15/23 08:35 Acetaminophen Tab 325 Mg Tab PO 650 mg Q4HR PRN Administration Mild Pain or Fever > 100.5 Albuterol/Ipratropium 3 ml 01/14/23 20:00 01/15/23 07:39 Ipratropium-Albuterol 3 Ml Neb INHALATION 3 ml RT-QID THOMAS Administration Albuterol/Ipratropium 3 ml 01/14/23 17:52 Ipratropium-Albuterol 3 Ml Neb INHALATION RT-Q2H PRN Shortness Of Breath Or Wheezing Aspirin 81 mg 01/15/23 09:00 01/15/23 08:47 Aspirin 81 Mg PO 81 mg DAILY THOMAS Administration Atorvastatin Calcium 80 mg 01/14/23 21:00 01/14/23 20:55 Atorvastatin 80 Mg Tab PO 80 mg HS THOMAS Administration Bumetanide 1 mg 01/15/23 09:00 01/15/23 08:47 Bumetanide 1 Mg Tab PO 1 mg DAILY THOMAS Administration Bupropion HCl 150 mg 01/15/23 09:00 01/15/23 08:47 Bupropion Xl 150 Mg Tab.Er.24h PO 150 mg DAILY THOMAS Administration Dextrose/Water 25 ml 01/14/23 19:30 Dextrose 50% Syringe 50 Ml IVP PER PROTOCOL PRN Hypoglycemia Protocol Dextrose/Water 50 ml 01/14/23 19:30 Dextrose 50% Syringe 50 Ml IVP PER PROTOCOL PRN Hypoglycemia Protocol Gabapentin 300 mg 01/14/23 21:00 01/15/23 08:47 Gabapentin 300 Mg Cap PO 300 mg BID THOMAS Administration Insulin Aspart 0 unit 01/14/23 21:00 01/15/23 06:18 Insulin Aspart (Novolog) 100 Unit/Ml Vial SQ 2 unit ACHS THOMAS Administration Protocol Levothyroxine Sodium 176 mcg 01/15/23 06:30 01/15/23 05:23 Levothyroxine 88 Mcg Tab PO 176 mcg 0630 THOMAS Administration Methylprednisolone Sodium Succinate 60 mg 01/14/23 18:00 01/15/23 05:22 Methylprednisolone Sod Succi 125 Mg/2 Ml Vial IV 60 mg Q6HR THOMAS Administration Metoprolol Succinate 25 mg 01/15/23 09:00 01/15/23 08:47 Metoprolol Succinate (Er) 25 Mg Tab.Er.24h PO 25 mg DAILY THOMAS Administration Naloxone HCl 0.2 mg 01/14/23 17:52 Naloxone 0.4 Mg/Ml 1 Ml Vial IVP Q2M PRN Opioid Reversal Nitroglycerin 0.4 mg 01/14/23 17:52 Nitroglycerin Sl Tabs 0.4 Mg Tab SUBLINGUAL Q5M PRN Chest Pain Pantoprazole Sodium 40 mg 01/14/23 21:00 01/15/23 08:47 Pantoprazole 40 Mg Tablet PO 40 mg BID THOMAS Administration Potassium Chloride 10 meq 01/15/23 09:00 01/15/23 08:47 Potassium Chloride Er 10 Meq Tab.Er.Prt PO 10 meq DAILY THOMAS Administration Sertraline HCl 50 mg 01/14/23 21:00 01/14/23 20:55 Sertraline 50 Mg Tab PO 50 mg HS THOMAS Administration Intake and Output 01/14/23 01/15/23 01/15/23 22:59 06:59 14:59 Other: Voiding Method Toilet # Voids 1 Weight 79.379 kg 01/15/23 09:48 01/15/23 09:48
--- NOTE | 2023-01-15 11:57 | CA ---
Transthoracic Echo Report Name: Regina Padgett Age: 72 Gender: F : 1950 Exam Date: 01/15/2023 10:53 Exam Location: [place] [facility] Ht (in): 62 Wt (lb): 175 Ordering Physician: Kenya Bravo Attending/Referring Phys: [id number], [employer] Leigh Ann Bey, ALLISON Procedure CPT: Indications: LV function Cardiac Hx: limited study Technical Quality: Fair Contrast 1: Total Dose (mL): Contrast 2: Total Dose (mL): MEASUREMENTS (Male / Female) Normal Values 2D ECHO RV Internal Dim ED PLAX 3.8 cm LA Volume 37.0 cm??? 18 - 58 / 22 - 52 cm??? DOPPLER AV Peak Velocity 113.7 cm/s AV Peak Gradient 5.2 mmHg MV Area PHT 3.4 cm??? Mitral E Point Velocity 80.4 cm/s Mitral A Point Velocity 100.4 cm/s Mitral E to A Ratio 0.8 MV Deceleration Time 220.7 ms MV E' Velocity 7.3 cm/s Mitral E to MV E' Ratio 11.0 TR Peak Velocity 370.9 cm/s TR Peak Gradient 55.0 mmHg Right Ventricular Systolic Press 58.0 mmHg FINDINGS Left Ventricle Left ventricular ejection fraction is estimated at 55-60 %. No obvious regional wall motion abnormalities. Flattening ventricular septum in systole and diastole Right Ventricle Moderate right ventricular dilatation. Severe pulmonary hypertension. Right ventricular systolic pressure estimated at 58 mm hg. Severely reduced right ventricular global systolic function. Right Atrium Normal right atrial size. Left Atrium Mitral Valve Aortic Valve Tricuspid Valve [id number] tricuspid regurgitation. Pulmonic Valve Pericardium Normal pericardium. No pericardial effusion. Aorta CONCLUSIONS Enlarged right ventricle with hypertrophy with severe pulmonary hypertension and evidence of pressure overload on the left ventricle Left ventricular size and systolic function appears normal Previewed by: Dr. Sin Arshad MD (Electronically Signed) Final Date: 15 January 2023 11:56
[2023-01-15 12:23] LABS: Glucose,Whole Blood 417 mg/dL (70-110)
--- NOTE | 2023-01-15 12:27 | CT ---
EXAMINATION TYPE: CT chest angio for PE CT DLP: 323.70 mGycm, Automated exposure control for dose reduction was used. DATE OF EXAM: 01/15/2023 11:57 AM COMPARISON: Chest radiograph 01/14/2023, CT chest abdomen 11/13/2022. CLINICAL INDICATION:Female, 72 years old with history of elevated D-dimer, SOB, hx of PE; COPD, eleva nemesio d-dimer, history of PE, SOB TECHNIQUE/CONTRAST: CTA scan of the thorax is performed with IV Contrast, patient injected with 100, wasted 33 mL of Isov ue 300, pulmonary embolism protocol. MIP images are created and reviewed. FINDINGS: Pulmonary Artery: There are several filling defects demonstrated within the segmental and subsegmenta l pulmonary arteries of the right lung (series 4, image 81 and 59). The pulmonary artery is noted kayla suring 3.6 cm in diameter. Lungs/Pleura: No evidence of focal consolidation, pleural effusion or pneumothorax. Similar subpleura l reticular scarring/fibrotic changes demonstrated with within the anterior bilateral upper lobes. Airway: Large airways are patent. Heart: Not enlarged. No pericardial effusion. Post-CABG changes. Vasculature: No evidence of aortic aneurysm. Mediastinum: No gross evidence of adenopathy. Musculoskeletal: No acute osseous abnormalities. Median sternotomy wires. Soft Tissues: Unremarkable. Lower neck: No significant findings. Upper Abdomen: No significant findings. IMPRESSION: 1. Right lung segmental and subsegmental pulmonary emboli. No evidence for right heart strain. 2. Cardiomegaly with post-CABG changes. 3. Dilated main pulmonary artery which can be seen in setting of pulmonary arterial hypertension. Findings called to the patient's nurse Bobbi Maxwell at 12:24 PM on 01/15/2023
[2023-01-15] MEDS ORDERED: HEPARIN SODIUM 1,000 UN/ML (10ML VL) IV ONE (12:31)
[2023-01-15] MEDS ORDERED: HEPARIN SODIUM 1,000 UN/ML (10ML VL) IV PRN (12:31)
[2023-01-15 12:44] LABS: Prothrombin Time 19.2 sec (9.0-12.0)
[2023-01-15 12:57] LABS: Anisocytosis Slight; Basophils % (A) 0 %; Eosinophils % (A) 0 %; HCT 30.6 % (34.0-46.0); HGB 9.2 gm/dL (11.4-16.0); Hypochromasia Marked; Lymphocytes # (A) 0.2 k/uL (1.0-4.8); Lymphocytes % (A) 4 %; MCH 24.9 pg (25.0-35.0); MCHC 30.1 g/dL (31.0-37.0); MCV 82.6 fL (80.0-100.0); Mean Platelet Volume 8.6; Monocytes # (A) 0.1 k/uL (0-1.0); Monocytes % (A) 3 %; Neutrophils # (A) 4.1 k/uL (1.3-7.7); Neutrophils % (A) 93 %; Platelet Count 252 k/uL (150-450); Poikilocytosis Slight; RDW 16.5 % (11.5-15.5); WBC 4.5 k/uL (3.8-10.6)
[2023-01-15 13:13] LABS: INR 1.9 (<1.2); Partial Thromboplastin Time 25.3 sec (22.0-30.0)
[2023-01-15] MEDS: HEPARIN SOD,PORK IN 0.45% NACL 25,000 UNIT in 0.45% NACL 1 250ML.BAG IV SCH (13:17)
--- NOTE | 2023-01-15 14:02 | P.CNPUL ---
History of Present Illness Consult date: 01/15/23 Requesting physician: Olive Johnson Reason for consult: dyspnea Chief complaint: Dyspnea on exertion History of present illness: This is a pleasant 72-year-old female patient who has a history of diabetes mellitus, hyperlipidemia, hypertension, diabetic neuropathy, coronary artery disease with previous coronary artery bypass surgery, multiple pulmonary embolisms with subsequent surgical intervention performed in [place] in 2020. She's been maintained on warfarin. She is a lifelong nonsmoker. She states she has been on home oxygen since having her gallbladder removed here in November 2022. Two weeks ago she developed increasing shortness of breath with minimal exertion. She presented to the emergency room yesterday with a significant shortness of breath chest while walking across her living room. Chest x-ray reveals no acute pulmonary process. White count 4.5. Hemoglobin 9.2. Platelets 252. INR 2.0. D-dimer 1.05. Sodium 137. Potassium 4.2. Bicarb 23. BUN 20. Creatinine 0.66. Glucose 106. Troponin negative 1. Echocardiogram revealed preserved left ventricular systolic function with ejection fraction 55- 60%. There is moderate right-sided ventricular dilatation. Severe pulmonary hypertension. RVSP 58 mmHg. Reduced right ventricular global systolic fu nction. CT angiogram revealed right lung segmental and subsegmental pulmonary emboli. Dilated main pulmonary artery seen in the setting of pulmonary arterial hypertension. Warfarin is on hold. The patient was initiated on a heparin drip. The patient is seen today in consultation on the regular medical floor. She is awake and alert in no acute distress. She is maintaining good O2 saturations in the 90s on 3 L/m per nasal cannula. She's afebrile. Hemodynamically stable. She has no cough or congestion. No hemoptysis. Review of Systems REVIEW OF SYSTEMS: CONSTITUTIONAL: Denies any recent significant weight loss or weight gain. EYES: Denies change in vision. EARS, NOSE, MOUTH, THROAT: Denies headaches, denies sore throat. CARDIOVASCULAR: Denies chest pain, palpitations or syncopal episodes. RESPIRATORY: Positive for shortness of breath, no cough, congestion or hemoptysis. GASTROINTESTINAL: Denies change in appetite, denies abdominal pain GENITOURINARY: Denies hematuria, denies infections. MUSKULOSKELETAL: Denies pain, denies swelling. INTEGUMENTARY: Denies rash, denies eczema. NEUROLOGICAL: Denies recent memory loss, no recent seizure activity. PSYCHIATRIC: Denies anxiety, denies depression. HEMATOLOGIC/LYMPHATIC: Denies anemia, denies enlarged lymph nodes. Past Medical History Past Medical History: Diabetes Mellitus, Hyperlipidemia, Hypertension, Pulmonary Embolus ([place]) Additional Past Medical History / Comment(s): Neuropathy, DM type 2 History of Any Multi-Drug Resistant Organisms: None Reported Past Surgical History: Appendectomy, Bladder Surgery, Coronary Bypass/CABG, Hysterectomy, Joint Replacement Additional Past Surgical History / Comment(s): Lung surgery, bladder suspension x5, right knee replacement Past Anesthesia/Blood Transfusion Reactions: No Reported Reaction Past Psychological History: Anxiety Smoking Status: Never smoker Past Alcohol Use History: None Reported Past Drug Use History: None Reported - Past Family History Father Family Medical History: Hyperlipidemia, Hypertension, Myocardial Infarction ([place]) Additional Family Medical History / Comment(s): Passed from myocardial infarction in 1999. Mother Family Medical History: Coronary Artery Disease (CAD), Renal Disease Additional Family Medical History / Comment(s): "Surgery on carotids," was on peritoneal dialysis. Medications and Allergies Home Medications Medication Instructions Recorded Confirmed Type ALPRAZolam [Xanax] 0.25 mg PO DAILY PRN 11/05/22 01/14/23 History Acetaminophen [Tylenol] 650 mg PO Q6H PRN 11/05/22 01/14/23 History Apple Cider Vinegar 500mg 500 mg PO DAILY 11/05/22 01/14/23 History Aspirin EC [Ecotrin Low Dose] 81 mg PO DAILY 11/05/22 01/14/23 History Atorvastatin Calcium [Lipitor] 80 mg PO HS 11/05/22 01/14/23 History Bumetanide [BUMEX] 1 mg PO DAILY 11/05/22 01/14/23 History Calcium Carbonate [Calcium] 1,200 mg PO DAILY 11/05/22 01/14/23 History Cholecalciferol [Vitamin D3 (25 50 mcg PO DAILY 11/05/22 01/14/23 History Mcg = 1000 Iu)] Levothyroxine Sodium [Synthroid] 175 mcg PO DAILY 11/05/22 01/14/23 History Phenazopyridine HCl [Pyridium] 200 mg PO TID PRN 11/05/22 01/14/23 History Potassium Chloride ER [K-Dur 10] 10 meq PO DAILY 11/05/22 01/14/23 History Sertraline [Zoloft] 50 mg PO HS 11/05/22 01/14/23 History Warfarin [Coumadin] 2.5 mg PO MOTUWEFRSA 11/05/22 01/14/23 History Warfarin [Coumadin] 5 mg PO SUTH 11/05/22 01/14/23 History buPROPion XL [Wellbutrin XL] 150 mg PO DAILY 11/05/22 01/14/23 History polyethylene glycoL 3350 [Miralax] 17 gm PO DAILY 11/05/22 01/14/23 History Cyanocobalamin [Vitamin B-12] 1,000 mcg PO DAILY #30 tab 11/12/22 01/14/23 Rx Omeprazole 40 mg PO BID #60 cap 11/12/22 01/14/23 Rx Promethazine [Phenergan] 12.5 mg PO Q6HR PRN #10 tab 11/29/22 01/14/23 Rx metFORMIN HCL [Glucophage] 850 mg PO BID-W/MEALS 30 Days #60 11/29/22 01/14/23 Rx tab Ferrous Sulfate [Iron (65 MG 325 mg PO DAILY 01/14/23 01/14/23 History Elemental)] Gabapentin [Neurontin] 300 mg PO BID 01/14/23 01/14/23 History Metoprolol Succinate [Metoprolol 25 mg PO DAILY 01/14/23 01/14/23 History Succinate ER] Allergies Allergy/AdvReac Type Severity Reaction Status Date / Time No Known Allergies Allergy Verified 01/14/23 15:17 Physical Exam Vitals: Vital Signs Temp Pulse Pulse Resp BP BP Pulse Ox 01/15/23 11:27 72 01/15/23 11:18 72 01/15/23 07:54 78 01/15/23 07:39 76 97 01/15/23 06:26 98.3 F 87 17 119/78 97 01/15/23 02:00 98.1 F 98 14 109/58 96 01/14/23 21:22 68 16 130/60 98 01/14/23 20:57 92 20 106/55 96 01/14/23 20:25 80 01/14/23 19:47 86 16 110/60 98 01/14/23 19:23 82 01/14/23 18:15 87 16 112/57 99 01/14/23 16:03 68 16 110/60 98 01/14/23 14:42 20 01/14/23 14:08 88 18 105/44 96 01/14/23 14:06 98 F 92 24 130/52 97 Intake and Output 01/14/23 01/15/23 01/15/23 22:59 06:59 14:59 Intake Total 118 Balance 118 Intake: Oral 118 Other: Voiding Method Toilet # Voids 1 Weight 79.379 kg GENERAL EXAM: Alert, pleasant 72-year-old female, on 3 L nasal cannula, comfortable in no apparent distress. HEAD: Normocephalic. EYES: Normal reaction of pupils, equal size. NOSE: Clear with pink turbinates. THROAT: No erythema or exudates. NECK: No masses, no JVD. CHEST: No chest wall deformity. LUNGS: Equal air entry with no crackles, wheeze, rhonchi or dullness. CVS: S1 and S2 normal with no audible murmur, regular rhythm. ABDOMEN: No hepatosplenomegaly, normal bowel sounds, no guarding or rigidity. SPINE: No scoliosis or deformity SKIN: No rashes CENTRAL NERVOUS SYSTEM: No focal deficits, tone is normal in all 4 extremities. EXTREMITIES: There is no peripheral edema. No clubbing, no cyanosis. Peripheral pulses are intact. Results - Laboratory Findings CBC and BMP: 01/15/23 12:44 01/15/23 09:48 PT/INR, D-dimer PT 19.0 sec (9.0-12.0) H 01/15/23 12:44 INR 1.9 (<1.2) H 01/15/23 12:44 D-Dimer 1.05 mg/L FEU (<0.60) H 01/15/23 09:48 Abnormal lab findings: Abnormal Labs 01/14/23 01/14/23 01/14/23 14:27 14:27 14:27 RBC 3.73 L Hgb 9.3 L Hct 30.4 L MCH MCHC 30.7 L RDW 16.5 H Lymphocytes # 0.7 L PT 18.8 H INR 1.9 H D-Dimer BUN Glucose 119 H POC Glucose (mg/dL) Plasma Lactic Acid Wayne Magnesium 1.4 L Total Protein 5.4 L Albumin 3.2 L 01/14/23 01/15/23 01/15/23 14:27 06:14 09:48 RBC Hgb Hct MCH MCHC RDW Lymphocytes # PT INR D-Dimer BUN 20 H Glucose 206 H POC Glucose (mg/dL) 223 H Plasma Lactic Acid Wayne 2.5 H* Magnesium Total Protein Albumin 01/15/23 01/15/23 01/15/23 09:48 09:48 09:48 RBC Hgb 9.8 L Hct 33.2 L MCH 24.7 L MCHC 29.5 L RDW 16.5 H Lymphocytes # 0.3 L PT 19.2 H INR 2.0 H D-Dimer 1.05 H BUN Glucose POC Glucose (mg/dL) Plasma Lactic Acid Wayne Magnesium Total Protein Albumin 01/15/23 01/15/23 01/15/23 12:22 12:44 12:44 RBC 3.70 L Hgb 9.2 L Hct 30.6 L MCH 24.9 L MCHC 30.1 L RDW 16.5 H Lymphocytes # 0.2 L PT 19.0 H INR 1.9 H D-Dimer BUN Glucose POC Glucose (mg/dL) 417 H Plasma Lactic Acid Wayne Magnesium Total Protein Albumin - Diagnostic Findings Chest x-ray: image reviewed CT scan - chest: image reviewed Assessment and Plan Assessment: Acute on chronic hypoxemic respiratory failure secondary to right segmental and subsegmental pulmonary emboli with dilated right ventricle and significant pulmonary hypertension per echocardiogram. Initiated on a heparin drip. 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 Echocardiogram revealed moderate right ventricular dilatation with severe pulmonary hypertension with RVSP of 58 mmHg. Severely reduced right ventricular global systolic function. History of previous pulmonary emboli status post surgical intervention in [place] in 2020 Recent admission for dizziness and subsequent right upper quadrant pain status post cholecystectomy in October 2022 Nocturnal hypoxemia, on home oxygen at night Acute on chronic anemia, current hemoglobin 9.2 History of coronary disease with previous coronary artery bypass grafting History of lupus Hyperlipidemia Hypothyroidism Diabetes mellitus Diabetic neuro her neuropathy Lifelong nonsmoker History of anxiety Plan: The patient was seen and evaluated Chest x-ray, CAT scan, echocardiogram, medications and labs reviewed Initiated on a heparin drip per cardiology Warfarin on hold Probably would benefit from a X A inhibitor versus warfarin Titrate the FiO2 as tolerated We will continue to follow and make further recommendations based on her clinical status I have personally seen and examined the patient, performed the documentation and the assessment and plan as written. Number of minutes spent on the visit: 20.
[2023-01-15 16:06] LABS: Chol/HDL Ratio 2.68 Ratio; LDL Cholesterol,Calculated 61.5 mg/dL (0.0-131.0)
[2023-01-15 17:29] LABS: Glucose,Whole Blood 269 mg/dL (70-110)
[2023-01-15] MEDS: ATORVASTATIN 80 MG TAB PO SCH (21:01)
[2023-01-15] MEDS: SERTRALINE 50 MG TAB PO SCH (21:01)
[2023-01-15 21:09] LABS: Glucose,Whole Blood 293 mg/dL (70-110)
[2023-01-15] MEDS: INSULIN DETEMIR (LEVEMIR) 100 UNIT/ML SYR SQ SCH (23:09)
[2023-01-16 05:56] LABS: Glucose,Whole Blood 227 mg/dL (70-110)
[2023-01-16] MEDS: methylPREDNISolone SOD SUCCI 125 MG/2 ML VIAL IV SCH ×4 (05:57→23:05)
[2023-01-16] MEDS: LEVOTHYROXINE 88 MCG TAB PO SCH (05:57)
[2023-01-16] MEDS: HEPARIN SOD,PORK IN 0.45% NACL 25,000 UNIT in 0.45% NACL 1 250ML.BAG IV SCH (06:03)
[2023-01-16] MEDS: INSULIN ASPART (NovoLOG) 100 UNIT/ML VIAL SQ SCH ×4 (06:06→20:48)
--- NOTE | 2023-01-16 06:56 | P.PN ---
Subjective Progress Note Date: 01/16/23 Principal diagnosis: Dyspnea. This is a pleasant 72-year-old female patient who has a history of diabetes mellitus, hyperlipidemia, hypertension, diabetic neuropathy, coronary artery disease with previous coronary artery bypass surgery, multiple pulmonary embolisms with subsequent surgical intervention performed in [place] in 2020. She's been maintained on warfarin. She is a lifelong nonsmoker. She states she has been on home oxygen since having her gallbladder removed here in November 2022. Two weeks ago she developed increasing shortness of breath with minimal exertion. She presented to the emergency room yesterday with a significant shortness of breath chest while walking across her living room. Chest x-ray reveals no acute pulmonary process. White count 4.5. Hemoglobin 9.2. Platelets 252. INR 2.0. D-dimer 1.05. Sodium 137. Potassium 4.2. Bicarb 23. BUN 20. Creatinine 0.66. Glucose 106. Troponin negative 1. Echocardiogram revealed preserved left ventricular systolic function with ejection fraction 55- 60%. There is moderate right-sided ventricular dilatation. Severe pulmonary hypertension. RVSP 58 mmHg. Reduced right ventricular global systolic function. CT angiogram revealed right lung segmental and subsegmental pulmonary emboli. Dilated main pulmonary artery seen in the setting of pulmonary arterial hypertension. Warfarin is on hold. The patient was initiated on a heparin drip. The patient is seen today in consultation on the regular medical floor. She is awake and alert in no acute distress. She is maintaining good O2 saturations in the 90s on 3 L/m per nasal cannula. She's afebrile. Hemodynamically stable. She has no cough or congestion. No hemoptysis. Progress note dated 01/16/2023. 73-year-old female seen yesterday in consultation. The patient has a history of diabetes, hyperlipidemia, hypertension, diabetic neuropathy, coronary disease, status post CABG, and history of pulmonary embolism, with surgical intervention in [place]. She apparently had been seeing a vp marketing at [facility] by the name of Dr. Kevin Sánchez. 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 Dr. Sánchez runs the pulmonary hypertension clinic at [place]. She was admitted with a diagnosis of shortness of breath. Currently she is on oxygen at 3 L. She's getting IV heparin, and saline at 20 mL an hour. She is feeling much better. Thus far, glucose 227. Objective - Vital Signs Vital signs: Vital Signs Temp 98.4 F 01/16/23 06:38 Pulse 84 01/16/23 06:38 Resp 17 01/16/23 06:38 BP 121/59 01/16/23 06:38 Pulse Ox 97 01/16/23 06:38 FiO2 Intake & Output 01/15/23 01/15/23 01/16/23 06:59 18:59 06:59 Intake Total 118 204.480 Balance 118 204.480 Weight 79.379 kg Intake: Intake, IV Titration 204.480 Amount Heparin Sod,Pork in 0.45% 204.480 NaCl 25,000 unit In 0.45 % NaCl 1 250ml.bag @ 18 UNITS/KG/HR 14.288 mls/hr IV .[id number] [facility] Rx#: [id number] Oral 118 Other: Voiding Method Toilet Toilet # Voids 1 3 2 - Exam No acute distress, oriented 3. No conversational dyspnea or use of accessory muscles. Currently on 3 L. HEENT examination is grossly unremarkable. Neck supple. Full range of motion. No adenopathy thyromegaly or neck vein distention. Cardiovascular examination reveals regular rhythm rate. S1-S2 normal. No S3 or S4. No discernible murmur noted. Heart rate 84 bpm. Lungs reveal clear breath sounds. Breath sounds are equal bilaterally. No adventitious lung sounds including wheezes rhonchi or crackles. Saturations are 97% on 3 L. Abdomen soft bowel sounds are heard. No masses or tenderness. Extremities are intact. No cyanosis clubbing or edema. Skin is without rash or lesion. Neurologic examination is brief but nonfocal. - Labs CBC & Chem 7: 01/15/23 12:44 01/15/23 09:48 Labs: Abnormal Lab Results - Last 24 Hours (Table) 01/15/23 01/15/23 01/15/23 Range/Units 09:48 09:48 09:48 RBC (3.80-5.40) m/uL Hgb 9.8 L (11.4-16.0) gm/dL Hct 33.2 L (34.0-46.0) % MCH 24.7 L (25.0-35.0) pg MCHC 29.5 L (31.0-37.0) g/dL RDW 16.5 H (11.5-15.5) % Lymphocytes # 0.3 L (1.0-4.8) k/uL PT (9.0-12.0) sec INR (<1.2) APTT (22.0-30.0) sec D-Dimer (<0.60) mg/L FEU BUN 20 H (7-17) mg/dL Glucose 206 H (74-99) mg/dL POC Glucose (mg/dL) (70-110) mg/dL Hemoglobin A1c 6.2 H (0.0-6.0) % 01/15/23 01/15/23 01/15/23 Range/Units 09:48 09:48 12:22 RBC (3.80-5.40) m/uL Hgb (11.4-16.0) gm/dL Hct (34.0-46.0) % MCH (25.0-35.0) pg MCHC (31.0-37.0) g/dL RDW (11.5-15.5) % Lymphocytes # (1.0-4.8) k/uL PT 19.2 H (9.0-12.0) sec INR 2.0 H (<1.2) APTT (22.0-30.0) sec D-Dimer 1.05 H (<0.60) mg/L FEU BUN (7-17) mg/dL Glucose (74-99) mg/dL POC Glucose (mg/dL) 417 H (70-110) mg/dL Hemoglobin A1c (0.0-6.0) % 01/15/23 01/15/23 01/15/23 Range/Units 12:44 12:44 17:27 RBC 3.70 L (3.80-5.40) m/uL Hgb 9.2 L (11.4-16.0) gm/dL Hct 30.6 L (34.0-46.0) % MCH 24.9 L (25.0-35.0) pg MCHC 30.1 L (31.0-37.0) g/dL RDW 16.5 H (11.5-15.5) % Lymphocytes # 0.2 L (1.0-4.8) k/uL PT 19.0 H (9.0-12.0) sec INR 1.9 H (<1.2) APTT (22.0-30.0) sec D-Dimer (<0.60) mg/L FEU BUN (7-17) mg/dL Glucose (74-99) mg/dL POC Glucose (mg/dL) 269 H (70-110) mg/dL Hemoglobin A1c (0.0-6.0) % 01/15/23 01/15/23 01/16/23 Range/Units 19:16 21:08 05:55 RBC (3.80-5.40) m/uL Hgb (11.4-16.0) gm/dL Hct (34.0-46.0) % MCH (25.0-35.0) pg MCHC (31.0-37.0) g/dL RDW (11.5-15.5) % Lymphocytes # (1.0-4.8) k/uL PT (9.0-12.0) sec INR (<1.2) APTT 123.7 H* (22.0-30.0) sec D-Dimer (<0.60) mg/L FEU BUN (7-17) mg/dL Glucose (74-99) mg/dL POC Glucose (mg/dL) 293 H 227 H (70-110) mg/dL Hemoglobin A1c (0.0-6.0) % Assessment and Plan Assessment: Acute on chronic hypoxemic respiratory failure secondary to right segmental and subsegmental pulmonary emboli with dilated right ventricle and significant pulmonary hypertension per echocardiogram. Initiated on a heparin drip. The patient failed outpatient therapy on warfarin. 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 Echocardiogram revealed moderate right ventricular dilatation with severe pulmonary hypertension with R VSP of 58 mmHg. Severely reduced right ventricular global systolic function. History of previous pulmonary emboli status post surgical intervention in [place] in 2020. Recent admission for dizziness and subsequent right upper quadrant pain status post cholecystectomy in October 2022. Nocturnal hypoxemia, on home oxygen. Acute on chronic anemia. History of coronary disease with previous coronary artery bypass grafting. History of lupus. Hyperlipidemia. Hypothyroidism. Diabetes mellitus with diabetic neuropathy. Lifelong nonsmoker. History of anxiety. Plan: Plan dated 01/16/2023. The patient appears to be doing better. She feels better. Her breathing has eased up. She's currently on 3 L. She is receiving IV heparin. Labs, x-rays, and medications are reviewed. 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 She sees Dr. Kevin Sánchez at the pulmonary hypertension clinic at [facility]. She should return to see him once discharged. No additional recommendations are made. We will continue to follow make recommendations along the way. Time with Patient: Less than 30
[2023-01-16] MEDS: buPROPion XL 150 MG TAB.ER.24H PO SCH (08:23)
[2023-01-16] MEDS: BUMETANIDE 1 MG TAB PO SCH (08:23)
[2023-01-16] MEDS: PANTOPRAZOLE 40 MG TABLET PO SCH ×2 (08:23→19:57)
[2023-01-16] MEDS: POTASSIUM CHLORIDE ER 10 MEQ TAB.ER.PRT PO SCH (08:23)
[2023-01-16] MEDS: METOPROLOL SUCCINATE (ER) 25 MG TAB.ER.24H PO SCH (08:23)
[2023-01-16] MEDS: ASPIRIN 81 MG PO SCH (08:23)
[2023-01-16] MEDS: GABAPENTIN 300 MG CAP PO SCH ×2 (08:23→19:57)
[2023-01-16] MEDS: IPRATROPIUM-ALBUTEROL 3 ML NEB INHALATION SCH ×4 (08:27→19:18)
[2023-01-16 10:52] LABS: Basophils # (A) 0 X 10*3/uL (0.00-0.10); Basophils % (A) 0 %; Eosinophils # (A) 0 X 10*3/uL (0.04-0.35); Eosinophils % (A) 0 %; HCT 29.8 % (37.2-46.3); HGB 8.6 g/dL (12.0-15.0); Immature Grans, Automated 0.4 %; Lymphocytes # (A) 0.35 X 10*3/uL (0.90-5.00); Lymphocytes % (A) 2.8 %; MCH 23.8 pg (27.0-32.0); MCHC 28.9 g/dL (32.0-37.0); MCV 82.5 fL (80.0-97.0); Mean Platelet Volume 10.9 fL (9.5-12.2); Monocytes # (A) 0.34 X 10*3/uL (0.20-1.00); Monocytes % (A) 2.7 %; NRBC Per 100 WBC 0 /100 WBCS (0.0-0.0); Neutrophils # (A) 11.65 X 10*3/uL (1.80-7.70); Neutrophils % (A) 94.1 %; Platelet Count 318 X 10*3/uL (140-440); RBC 3.61 X 10*6/uL (4.10-5.20); RDW 17.1 % (11.5-14.5); WBC 12.39 X 10*3/uL (4.50-10.00)
[2023-01-16 11:17] LABS: African American GFR (CKD) 105.5 (60.0-200.0); Anion Gap 11.4 mmol/L (10.00-18.00); BUN/Creat Ratio 23.17 Ratio (12.00-20.00); Blood Urea Nitrogen 13.9 mg/dL (9.0-27.0); Calcium 8.8 mg/dL (8.7-10.3); Carbon Dioxide 25.6 mmol/L (20.0-27.5); Non-African American GFR(CKD) 91.1 (60.0-200.0); Potassium 3.9 mmol/L (3.5-5.5)
[2023-01-16 12:20] LABS: Glucose,Whole Blood 306 mg/dL (70-110)
[2023-01-16 17:18] LABS: Glucose,Whole Blood 215 mg/dL (70-110)
[2023-01-16] MEDS: ATORVASTATIN 80 MG TAB PO SCH (19:57)
[2023-01-16] MEDS: ACETAMINOPHEN TAB 325 MG TAB PO PRN (19:57)
[2023-01-16] MEDS: SERTRALINE 50 MG TAB PO SCH (19:57)
[2023-01-16 20:36] LABS: Glucose,Whole Blood 215 mg/dL (70-110)
[2023-01-16] MEDS: INSULIN DETEMIR (LEVEMIR) 100 UNIT/ML SYR SQ SCH (20:48)
[2023-01-17] MEDS: LEVOTHYROXINE 88 MCG TAB PO SCH (05:41)
[2023-01-17] MEDS: methylPREDNISolone SOD SUCCI 125 MG/2 ML VIAL IV SCH (05:42)
[2023-01-17 05:47] LABS: Glucose,Whole Blood 223 mg/dL (70-110)
[2023-01-17] MEDS: INSULIN ASPART (NovoLOG) 100 UNIT/ML VIAL SQ SCH ×2 (05:51→13:26)
[2023-01-17] MEDS: HEPARIN SOD,PORK IN 0.45% NACL 25,000 UNIT in 0.45% NACL 1 250ML.BAG IV SCH (06:45)
[2023-01-17 08:15] LABS: Anisocytosis Slight; Basophils % (A) 0 %; Eosinophils % (A) 0 %; HCT 28.8 % (34.0-46.0); HGB 8.5 gm/dL (11.4-16.0); Hypochromasia Marked; Lymphocytes # (A) 0.3 k/uL (1.0-4.8); Lymphocytes % (A) 3 %; MCHC 29.5 g/dL (31.0-37.0); MCV 81.2 fL (80.0-100.0); Mean Platelet Volume 8.5; Monocytes # (A) 0.3 k/uL (0-1.0); Monocytes % (A) 3 %; Neutrophils # (A) 9.1 k/uL (1.3-7.7); Neutrophils % (A) 93 %; Platelet Count 273 k/uL (150-450); Poikilocytosis Slight; RBC 3.54 m/uL (3.80-5.40); RDW 16.8 % (11.5-15.5); WBC 9.8 k/uL (3.8-10.6)
[2023-01-17] MEDS: POTASSIUM CHLORIDE ER 10 MEQ TAB.ER.PRT PO SCH (08:30)
[2023-01-17] MEDS: BUMETANIDE 1 MG TAB PO SCH (08:30)
[2023-01-17] MEDS: GABAPENTIN 300 MG CAP PO SCH (08:30)
[2023-01-17] MEDS: ASPIRIN 81 MG PO SCH (08:30)
[2023-01-17] MEDS: buPROPion XL 150 MG TAB.ER.24H PO SCH (08:31)
[2023-01-17] MEDS: PANTOPRAZOLE 40 MG TABLET PO SCH (08:31)
[2023-01-17] MEDS: METOPROLOL SUCCINATE (ER) 25 MG TAB.ER.24H PO SCH (08:31)
[2023-01-17] MEDS ORDERED: APIXABAN 5 MG TAB PO SCH (09:00)
[2023-01-17] MEDS: IPRATROPIUM-ALBUTEROL 3 ML NEB INHALATION SCH ×3 (09:59→16:16)
--- NOTE | 2023-01-17 10:43 | P.PN ---
Subjective Progress Note Date: 01/15/23 Patient is a 70-year-old female with a known history of coronary artery bypass graft, COPD on oxygen at 3 L via nasal cannula, history of multiple PEs status post thrombectomy at [facility] on long-term anticoagulation with Coumadin, diabetes type 2, hypertension, hyperlipidemia, diabetic neuropathy, Patient was recently discharged from the hospital 11/29/2022. Patient presents to ER with complaints of shortness of breath started today afternoon. Denies any complaints of chest pain. No headache or dizziness or lightheadedness. No nausea vomiting or abdominal pain or diarrhea. Patient does have mild leg swelling as well. Denies any worsening swelling recently.. Denied any pleuritic chest pain. Chest x-ray showed no acute cardiopulmonary process/disease EKG showed sinus rhythm with right bundle branch block with ST depression in the leads V2 to V4. Laboratory data showed WBC 6.3 hemoglobin 9.3 and platelets 270 INR 1.9 Lactic acid 2.5 on admission proBNP 2900 and albumin 3.2 and troponin x2 negative Influenza A B, COVID-19 and RSV not detected. Patient states that she is holding Coumadin for the past 3 days due to scheduled EGD. 01/15/2023 Patient is lying in the bed. Awake alert and oriented. Currently requiring 3 L oxygen with nasal cannula. Shortness of breath is improving. No complains of chest pain. Cough without sputum production. Patient has been afebrile. She was found to have elevated d-dimer level. CTA chest showed right lung subsegmental and subsegmental pulmonary emboli. No evidence of right heart strain. Cardiomegaly with post CABG changes. Coumadin is on hold and patient was started on heparin drip. Sodium 137 potassium 4.2 chloride 105, BUN 20 and creatinine 0.66 and blood sugar is 206 Diagnosis 4.4 hemoglobin 9.8 and platelets 281, d-dimer is 1.05 Echocardiogram showed large right ventricular hypertrophy with severe pulmonary hypertension. Evidence of pressure overload on the left ventricle. Left ventricular size and systolic function appears normal. Current medications reviewed. Objective - Vital Signs Vital signs: Vital Signs Temp 97.5 F L 01/15/23 15:00 Pulse 80 01/15/23 15:20 Resp 16 01/15/23 15:00 BP 151/73 01/15/23 15:00 Pulse Ox 95 01/15/23 15:00 FiO2 Intake & Output 01/15/23 01/15/23 01/16/23 06:59 18:59 06:59 Intake Total 118 Balance 118 Weight 79.379 kg Intake: Oral 118 Other: Voiding Method Toilet # Voids 1 3 - Exam PHYSICAL EXAMINATION: Patient is lying in the bed comfortably, no acute distress, awake alert and oriented.. HEENT: Normocephalic. Neck is supple. Pupils reactive. Nostrils clear. Oral cavity is moist. Neck reveals no JVD, carotid bruits, or thyromegaly. CHEST EXAMINATION: Trachea is central. Symmetrical expansion. Expiratory wheezing and scattered rhonchi.. CARDIAC: Normal S1, S2 with no gallops. No murmurs ABDOMEN: Soft. Bowel sounds normal. No organomegaly. No abdominal bruits. Extremities: reveal no edema. No clubbing or cyanosis Neurologically awake, alert, oriented x3 with well-coordinated movements. No focal deficits noted Skin: No rash or skin lesions. Psychiatric: Coperative. Nonsuicidal Musculoskeletal: No joint swelling or deformity. Normal range of motion. - Labs CBC & Chem 7: 01/17/23 07:54 01/16/23 06:18 Labs: Abnormal Lab Results - Last 24 Hours (Table) 01/15/23 01/15/23 01/15/23 Range/Units 06:14 09:48 09:48 RBC (3.80-5.40) m/uL Hgb (11.4-16.0) gm/dL Hct (34.0-46.0) % MCH (25.0-35.0) pg MCHC (31.0-37.0) g/dL RDW (11.5-15.5) % Lymphocytes # (1.0-4.8) k/uL PT (9.0-12.0) sec INR (<1.2) D-Dimer (<0.60) mg/L FEU BUN 20 H (7-17) mg/dL Glucose 206 H (74-99) mg/dL POC Glucose (mg/dL) 223 H (70-110) mg/dL Hemoglobin A1c 6.2 H (0.0-6.0) % 01/15/23 01/15/23 01/15/23 Range/Units 09:48 09:48 09:48 RBC (3.80-5.40) m/uL Hgb 9.8 L (11.4-16.0) gm/dL Hct 33.2 L (34.0-46.0) % MCH 24.7 L (25.0-35.0) pg MCHC 29.5 L (31.0-37.0) g/dL RDW 16.5 H (11.5-15.5) % Lymphocytes # 0.3 L (1.0-4.8) k/uL PT 19.2 H (9.0-12.0) sec INR 2.0 H (<1.2) D-Dimer 1.05 H (<0.60) mg/L FEU BUN (7-17) mg/dL Glucose (74-99) mg/dL POC Glucose (mg/dL) (70-110) mg/dL Hemoglobin A1c (0.0-6.0) % 01/15/23 01/15/23 01/15/23 Range/Units 12:22 12:44 12:44 RBC 3.70 L (3.80-5.40) m/uL Hgb 9.2 L (11.4-16.0) gm/dL Hct 30.6 L (34.0-46.0) % MCH 24.9 L (25.0-35.0) pg MCHC 30.1 L (31.0-37.0) g/dL RDW 16.5 H (11.5-15.5) % Lymphocytes # 0.2 L (1.0-4.8) k/uL PT 19.0 H (9.0-12.0) sec INR 1.9 H (<1.2) D-Dimer (<0.60) mg/L FEU BUN (7-17) mg/dL Glucose (74-99) mg/dL POC Glucose (mg/dL) 417 H (70-110) mg/dL Hemoglobin A1c (0.0-6.0) % 01/15/23 Range/Units 17:27 RBC (3.80-5.40) m/uL Hgb (11.4-16.0) gm/dL Hct (34.0-46.0) % MCH (25.0-35.0) pg MCHC (31.0-37.0) g/dL RDW (11.5-15.5) % Lymphocytes # (1.0-4.8) k/uL PT (9.0-12.0) sec INR (<1.2) D-Dimer (<0.60) mg/L FEU BUN (7-17) mg/dL Glucose (74-99) mg/dL POC Glucose (mg/dL) 269 H (70-110) mg/dL Hemoglobin A1c (0.0-6.0) % Assessment and Plan Assessment: Worsening shortness of breath secondary to acute COPD exacerbation Chronic hypoxic respiratory failure on oxygen at 3 L via nasal cannula Elevated d-dimer. CTA showed right lower lobe subsegmental pulmonary emboli. History of PE status post thrombectomy at [facility]. on indefinite anticoagulation with Coumadin. 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 Plan: Patient was started on heparin drip and Coumadin is on hold. Pulmonary consultation for evaluation PE and anticoagulation.. Patient will be continued on IV Solu-Medrol 60 mg every 6 hourly and continue with DuoNebs. Oxygen supplementation at 3 L.. Coumadin dosing and home medications. Cardiology is on board.. Continue to follow closely. Discussed with the patient and her at bedside in detail. Time with Patient: Greater than 30
--- NOTE | 2023-01-17 10:46 | P.PN ---
Subjective Progress Note Date: 01/16/23 Patient is a 70-year-old female with a known history of coronary artery bypass graft, COPD on oxygen at 3 L via nasal cannula, history of multiple PEs status post thrombectomy at [facility] on long-term anticoagulation with Coumadin, diabetes type 2, hypertension, hyperlipidemia, diabetic neuropathy, Patient was recently discharged from the hospital 11/29/2022. Patient presents to ER with complaints of shortness of breath started today afternoon. Denies any complaints of chest pain. No headache or dizziness or lightheadedness. No nausea vomiting or abdominal pain or diarrhea. Patient does have mild leg swelling as well. Denies any worsening swelling recently.. Denied any pleuritic chest pain. Chest x-ray showed no acute cardiopulmonary process/disease EKG showed sinus rhythm with right bundle branch block with ST depression in the leads V2 to V4. Laboratory data showed WBC 6.3 hemoglobin 9.3 and platelets 270 INR 1.9 Lactic acid 2.5 on admission proBNP 2900 and albumin 3.2 and troponin x2 negative Influenza A B, COVID-19 and RSV not detected. Patient states that she is holding Coumadin for the past 3 days due to scheduled EGD. 01/15/2023 Patient is lying in the bed. Awake alert and oriented. Currently requiring 3 L oxygen with nasal cannula. Shortness of breath is improving. No complains of chest pain. Cough without sputum production. Patient has been afebrile. She was found to have elevated d-dimer level. CTA chest showed right lung subsegmental and subsegmental pulmonary emboli. No evidence of right heart strain. Cardiomegaly with post CABG changes. Coumadin is on hold and patient was started on heparin drip. Sodium 137 potassium 4.2 chloride 105, BUN 20 and creatinine 0.66 and blood sugar is 206 Diagnosis 4.4 hemoglobin 9.8 and platelets 281, d-dimer is 1.05 Echocardiogram showed large right ventricular hypertrophy with severe pulmonary hypertension. Evidence of pressure overload on the left ventricle. Left ventricular size and systolic function appears normal. 01/16/2023 Patient is currently resting in bed. Awake alert oriented 3. No complains of chest pain or shortness of breath. Continued on heparin. Requiring oxygen at 3 days per nasal cannula. Breathing status is improving. Patient has been afebrile. No cough or sputum production. Laboratory data showed WBC 12.3 hemoglobin 8.6 and platelets 318 Sodium 140 potassium 3.9 BUN 13.9 and creatinine 0.6 and blood sugar is 188. Current medications reviewed. Objective - Vital Signs Vital signs: Vital Signs Temp 97.9 F 01/16/23 15:23 Pulse 100 01/16/23 19:28 Resp 19 01/16/23 15:23 BP 108/66 01/16/23 15:23 Pulse Ox 95 01/16/23 15:23 FiO2 Intake & Output 01/16/23 01/16/23 01/17/23 06:59 18:59 06:59 Intake Total 204.480 138.242 Balance 204.480 138.242 Intake: Intake, IV Titration 204.480 20.242 Amount Heparin Sod,Pork in 0.45% 204.480 20.242 NaCl 25,000 unit In 0.45 % NaCl 1 250ml.bag @ 18 UNITS/KG/HR 14.288 mls/hr IV .[id number] [facility] Rx#: [id number] Oral 118 Other: Voiding Method Toilet Toilet # Voids 2 1 - Exam PHYSICAL EXAMINATION: Patient is lying in the bed comfortably, no acute distress, awake alert and oriented.. HEENT: Normocephalic. Neck is supple. Pupils reactive. Nostrils clear. Oral cavity is moist. Neck reveals no JVD, carotid bruits, or thyromegaly. CHEST EXAMINATION: Trachea is central. Symmetrical expansion. Minimal ex piratory wheeze. No rhonchi or crackles... CARDIAC: Normal S1, S2 with no gallops. No murmurs ABDOMEN: Soft. Bowel sounds normal. No organomegaly. No abdominal bruits. Extremities: reveal no edema. No clubbing or cyanosis Neurologically awake, alert, oriented x3 with well-coordinated movements. No focal deficits noted Skin: No rash or skin lesions. Psychiatric: Coperative. Nonsuicidal Musculoskeletal: No joint swelling or deformity. Normal range of motion. - Labs CBC & Chem 7: 01/17/23 07:54 01/16/23 06:18 Labs: Abnormal Lab Results - Last 24 Hours (Table) 01/15/23 01/15/23 01/16/23 Range/Units 19:16 21:08 05:55 WBC (4.50-10.00) X 10*3/uL RBC (4.10-5.20) X 10*6/uL Hgb (12.0-15.0) g/dL Hct (37.2-46.3) % MCH (27.0-32.0) pg MCHC (32.0-37.0) g/dL RDW (11.5-14.5) % Immature Gran # (0.00-0.04) X 10*3/uL Neutrophils # (1.80-7.70) X 10*3/uL Lymphocytes # (0.90-5.00) X 10*3/uL Eosinophils # (0.04-0.35) X 10*3/uL APTT 123.7 H* (22.0-30.0) sec BUN/Creatinine Ratio (12.00-20.00) Ratio Glucose (70-110) mg/dL POC Glucose (mg/dL) 293 H 227 H (70-110) mg/dL 01/16/23 01/16/23 01/16/23 Range/Units 06:18 06:18 06:18 WBC 12.39 H (4.50-10.00) X 10*3/uL RBC 3.61 L (4.10-5.20) X 10*6/uL Hgb 8.6 L (12.0-15.0) g/dL Hct 29.8 L (37.2-46.3) % MCH 23.8 L (27.0-32.0) pg MCHC 28.9 L (32.0-37.0) g/dL RDW 17.1 H (11.5-14.5) % Immature Gran # 0.05 H (0.00-0.04) X 10*3/uL Neutrophils # 11.65 H (1.80-7.70) X 10*3/uL Lymphocytes # 0.35 L (0.90-5.00) X 10*3/uL Eosinophils # 0 L (0.04-0.35) X 10*3/uL APTT 85.0 H (22.0-30.0) sec BUN/Creatinine Ratio 23.17 H (12.00-20.00) Ratio Glucose 188 H (70-110) mg/dL POC Glucose (mg/dL) (70-110) mg/dL 01/16/23 01/16/2323 Range/Units 12:19 14:52 17:17 WBC (4.50-10.00) X 10*3/uL RBC (4.10-5.20) X 10*6/uL Hgb (12.0-15.0) g/dL Hct (37.2-46.3) % MCH (27.0-32.0) pg MCHC (32.0-37.0) g/dL RDW (11.5-14.5) % Immature Gran # (0.00-0.04) X 10*3/uL Neutrophils # (1.80-7.70) X 10*3/uL Lymphocytes # (0.90-5.00) X 10*3/uL Eosinophils # (0.04-0.35) X 10*3/uL APTT 58.8 H (22.0-30.0) sec BUN/Creatinine Ratio (12.00-20.00) Ratio Glucose (70-110) mg/dL POC Glucose (mg/dL) 306 H 215 H (70-110) mg/dL Assessment and Plan Assessment: Acute on Chronic hypoxic respiratory failure secondary to subsegmental thromb oembolism Worsening shortness of breath secondary to acute COPD exacerbation and also underlying pulmonary embolism Elevated d-dimer. CTA showed right lower lobe subsegmental pulmonary emboli.. Started on heparin due to supple therapeutic INR level and possible failed outpatient therapy with warfarin. History of PE status post thrombectomy at [facility]. on indefinite anticoagulation with Coumadin. 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 Plan: Patient was started on heparin drip and Coumadin is on hold. Pulmonary consultation for evaluation PE and anticoagulation.. Patient will be continued on IV Solu-Medrol 60 mg every 6 hourly and continue with DuoNebs. Oxygen supplementation at 3 L.. Coumadin dosing and home medications. Cardiology is on board.. Continue to follow closely. Discussed with the patient and her at bedside in detail. Time with Patient: Greater than 30
--- NOTE | 2023-01-17 11:24 | P.PN ---
Subjective Progress Note Date: 01/17/23 This is a pleasant 72-year-old female patient who has a history of diabetes mellitus, hyperlipidemia, hypertension, diabetic neuropathy, coronary artery disease with previous coronary artery bypass surgery, multiple pulmonary embolisms with subsequent surgical intervention performed in [place] in 2020. She's been maintained on warfarin. She is a lifelong nonsmoker. She states she has been on home oxygen since having her gallbladder removed here in November 2022. Two weeks ago she developed increasing shortness of breath with minimal exertion. She presented to the emergency room yesterday with a significant shortness of breath chest while walking across her living room. Chest x-ray reveals no acute pulmonary process. White count 4.5. Hemoglobin 9.2. Platelets 252. INR 2.0. D-dimer 1.05. Sodium 137. Potassium 4.2. Bicarb 23. BUN 20. Creatinine 0.66. Glucose 106. Troponin negative 1. Echocardiogram revealed preserved left ventricular systolic function with ejection fraction 55- 60%. There is moderate right-sided ventricular dilatation. Severe pulmonary hypertension. RVSP 58 mmHg. Reduced right ventricular global systolic function. CT angiogram revealed right lung segmental and subsegmental pulmonary emboli. Dilated main pulmonary artery seen in the setting of pulmonary arterial hypertension. Warfarin is on hold. The patient was initiated on a heparin drip. The patient is seen today in consultation on the regular medical floor. She is awake and alert in no acute distress. She is maintaining good O2 saturations in the 90s on 3 L/m per nasal cannula. She's afebrile. Hemodynamically stable. She has no cough or congestion. No hemoptysis. Progress note dated 01/16/2023. 73-year-old female seen yesterday in consultation. The patient has a history of diabetes, hyperlipidemia, hypertension, diabetic neuropathy, coronary disease, status post CABG, and history of pulmonary embolism, with surgical intervention in [place]. She apparently had been seeing a printed circuit boards router at [facility] by the name of Dr. Kevin Sánchez. 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 Dr. Sánchez runs the pulmonary hypertension clinic at [place]. She was admitted with a diagnosis of shortness of breath. Currently she is on oxygen at 3 L. She's getting IV heparin, and saline at 20 mL an hour. She is feeling much better. Thus far, glucose 227. The patient is seen today 01/17/2023 in follow-up regular medical floor. She is maintaining O2 saturations in the 90s on 3 L/m per nasal cannula. She remains on heparin drip. She has normal saline at 20 miles per hour. White count 9.8. Hemoglobin 8.5. Platelets 273. Denies any worsening shortness of breath, cough or congestion. No hemoptysis. Objective - Vital Signs Vital signs: Vital Signs Temp 98.1 F 01/17/23 06:51 Pulse 100 01/17/23 10:15 Resp 16 01/17/23 08:00 BP 125/76 01/17/23 06:51 Pulse Ox 98 01/17/23 09:59 FiO2 Intake & Output 01/16/23 01/17/23 01/17/23 18:59 06:59 18:59 Intake Total 138.242 729.758 Balance 138.242 729.758 Intake: Intake, IV Titration 20.242 229.758 Amount Heparin Sod,Pork in 0.45% 20.242 229.758 NaCl 25,000 unit In 0.45 % NaCl 1 250ml.bag @ 18 UNITS/KG/HR 14.288 mls/hr IV .[id number] THOMAS Rx#: [id number] Oral 118 500 Other: Voiding Method Toilet Toilet Toilet # Voids 1 - Exam GENERAL EXAM: Alert, pleasant 72-year-old female, resting comfortably in bed, on 3 L nasal cannula, comfortable in no apparent distress. HEAD: Normocephalic. EYES: Normal reaction of pupils, equal size. NOSE: Clear with pink turbinates. THROAT: No erythema or exudates. NECK: No masses, no JVD. CHEST: No chest wall deformity. LUNGS: Equal air entry with no crackles, wheeze, rhonchi or dullness. CVS: S1 and S2 normal with no audible murmur, regular rhythm. ABDOMEN: No hepatosplenomegaly, normal bowel sounds, no guarding or rigidity. SPINE: No scoliosis or deformity SKIN: No rashes CENTRAL NERVOUS SYSTEM: No focal deficits, tone is normal in all 4 extremities. EXTREMITIES: There is no peripheral edema. No clubbing, no cyanosis. P eripheral pulses are intact. - Labs CBC & Chem 7: 01/17/23 07:54 01/16/23 06:18 Labs: Abnormal Lab Results - Last 24 Hours (Table) 01/16/23 01/16/23 01/16/23 Range/Units 12:19 14:52 17:17 RBC (3.80-5.40) m/uL Hgb (11.4-16.0) gm/dL Hct (34.0-46.0) % MCH (25.0-35.0) pg MCHC (31.0-37.0) g/dL RDW (11.5-15.5) % Neutrophils # (1.3-7.7) k/uL Lymphocytes # (1.0-4.8) k/uL APTT 58.8 H (22.0-30.0) sec POC Glucose (mg/dL) 306 H 215 H (70-110) mg/dL 01/16/23 01/17/23 01/17/23 Range/Units 20:36 05:45 07:54 RBC 3.54 L (3.80-5.40) m/uL Hgb 8.5 L (11.4-16.0) gm/dL Hct 28.8 L (34.0-46.0) % MCH 24.0 L (25.0-35.0) pg MCHC 29.5 L (31.0-37.0) g/dL RDW 16.8 H (11.5-15.5) % Neutrophils # 9.1 H (1.3-7.7) k/uL Lymphocytes # 0.3 L (1.0-4.8) k/uL APTT (22.0-30.0) sec POC Glucose (mg/dL) 215 H 223 H (70-110) mg/dL Assessment and Plan Assessment: Acute on chronic hypoxemic respiratory failure secondary to right segmental and subsegmental pulmonary emboli with dilated right ventricle and significant pulmonary hypertension per echocardiogram. Initiated on a heparin drip. 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 Echocardiogram revealed moderate right ventricular dilatation with severe pulmonary hypertension with RVSP of 58 mmHg. Severely reduced right ventricular global systolic function. History of previous pulmonary emboli status post surgical intervention in [place] in 2020 Recent admission for dizziness and subsequent right upper quadrant pain status post cholecystectomy in October 2022 Nocturnal hypoxemia, on home oxygen at night Acute on chronic anemia, current hemoglobin 8.5 History of coronary disease with previous coronary artery bypass grafting History of lupus Hyperlipidemia Hypothyroidism Diabetes mellitus Diabetic neuro her neuropathy Lifelong nonsmoker History of anxiety Plan: The patient was seen and evaluated Medications and labs reviewed Could discontinue heparin drip Initiate Eliquis Continue her home oxygen To follow up with her printed circuit boards router at [place] post I have personally seen and examined the patient, performed the documentation and the assessment and plan as written. Number of minutes spent on the visit: 10.
[2023-01-17 12:53] LABS: Glucose,Whole Blood 200 mg/dL (70-110)
[2023-01-17 14:30] VITALS: BP 108/59; RESP 20; TEMP 97.9
[2023-01-17 16:33] VITALS: PULSE 100
== END 2023-01-17 17:15 | disposition home or self-care (01) | DRG 175 ==
LOC: EC 14:03 → 6NMEDSUR 17:52 → OBSVTOIN 01-16 10:00
PROVIDERS: ADMIT Internal Medicine; ATTEND Internal Medicine
DX: I26.99 Other pulmonary embolism without acute cor pulmonale (principal); J96.21 Acute and chronic respiratory failure with hypoxia; J44.1 Chronic obstructive pulmonary disease with (acute) exacerbation; I27.24 Chronic thromboembolic pulmonary hypertension; E11.40 Type 2 diabetes mellitus with diabetic neuropathy, unspecified; D64.9 Anemia, unspecified; I26.93 Single subsegmental thrombotic pulmonary embolism without acute cor pulmonale; Z20.822 Contact with and (suspected) exposure to COVID-19; I25.10 Atherosclerotic heart disease of native coronary artery without angina pectoris; I10 Essential (primary) hypertension; F41.9 Anxiety disorder, unspecified; F32.A Depression, unspecified; E03.9 Hypothyroidism, unspecified; E78.5 Hyperlipidemia, unspecified; R79.1 Abnormal coagulation profile; I45.10 Unspecified right bundle-branch block; Z99.81 Dependence on supplemental oxygen; Z79.82 Long term (current) use of aspirin; Z79.890 Hormone replacement therapy; Z79.84 Long term (current) use of oral hypoglycemic drugs; Z79.01 Long term (current) use of anticoagulants; Z79.899 Other long term (current) drug therapy; Z86.711 Personal history of pulmonary embolism; Z95.1 Presence of aortocoronary bypass graft; Z96.651 Presence of right artificial knee joint
CPT/HCPCS: 36415; 71046; 71275; 80048; 80053; 80061; 83036; 83605; 83735; 83880; 84484; 85025; 85379; 85610; 85730; 87636; 93005; 93308; 94640; 94760; 96374; 99285